=== PATIENT | female | born 1960 | race Two or more races ===

== ENCOUNTER 2016-06-23 18:58 | Emergency (ER) | payer OTHER ==
[~2016-06-23] VITALS: Ht 149.9 cm; Wt 74.8 kg
[~2016-06-23 18:58] MED LIST: LISI-275; METF-316; NOVOLOG MIX; PREDNISOLONE AC 1% EYE DROP; SIMV-13; [UNRECOGNIZED DRUG - OTHER]
[2016-06-23 20:36] LABS: Basophils # (auto) 0 uL; Basophils % (auto) 0.3 % (0.0-2.0); Eosinophils # (auto) 0.3 uL; Eosinophils % (auto) 4.3 % (0.0-7.0); Hematocrit 39.1 % (36.0-46.0); Hemoglobin 13.1 g/dL (12.2-16.2); Lymphocytes # (auto) 2.2 uL; Mean Corpuscular Hemoglobin 27.1 pg (28.0-32.0); Mean Corpuscular Hgb Conc. 33.5 g/dL (32.0-36.0); Mean Platelet Volume 11.3 fL (7.4-10.4); Monocytes # (auto) 0.3 uL; Monocytes % (auto) 3.8 % (0.0-12.0); Neutrophils # (auto) 4.8 uL; Neutrophils % (auto) 62.6 % (37.0-80.0); Platelet Count (auto) 209 10^3/uL (140-450); Red Cell Distribution Width 14.2 % (11.6-16.0); White Blood Cell 7.7 10^3/uL (4.4-10.8)
[2016-06-23 20:55] LABS: Albumin 2.5 g/dL (3.4-5.0); Alkaline Phosphatase 106 U/L (45-117); Anion Gap 11 (5-15); Aspartate Aminotransferase 16 U/L (15-37); BUN/Creatinine Ratio 25.6; Bilirubin, Total 0.4 mg/dL (0.2-1.0); Blood Urea Nitrogen 21 mg/dL (7-18); Calcium 8.7 mg/dL (8.5-10.1); Carbon Dioxide 28 mmol/L (21-32); Chloride 105 mmol/L (98-107); GFR African American 93 mL/min; GFR Non-African American 77 mL/min; Glucose 295 mg/dL (74-106); Magnesium 2.3 mg/dL (1.6-2.6); Potassium 4.1 mmol/L (3.5-5.1); Sodium 144 mmol/L (136-145); Total Protein 6.5 g/dL (6.4-8.2)
[2016-06-23] MEDS ORDERED: LABETALOL HCL 5 MG/ML 4ML SYRINGE IV ONE (22:15)
[2016-06-23] MEDS ORDERED: cloNIDine HCL 0.1 MG TAB PO ONE (22:30)
[2016-06-23] MEDS ORDERED: InsuLIN REG 1unit/0.01ml Soln (100units/ml) IV ONE (23:30)
[2016-06-24 00:14] VITALS: BP 154/71
== END 2016-06-24 00:38 | disposition home or self-care (01) ==
LOC: ER 19:02
DX: I10 Essential (primary) hypertension (principal); E46 Unspecified protein-calorie malnutrition; E11.65 Type 2 diabetes mellitus with hyperglycemia; E78.5 Hyperlipidemia, unspecified; Z86.73 Personal history of transient ischemic attack (TIA), and cerebral infarction without residual deficits; Z90.710 Acquired absence of both cervix and uterus; Z98.890 Other specified postprocedural states
CPT/HCPCS: 36415; 70450; 80053; 82962; 83735; 84484; 85025; 94761; 96374; 99285; J1815; J3490; 93005

== ENCOUNTER 2017-07-08 23:31 | Inpatient (IN) | payer MEDICAID, OTHER ==
[~2017-07-08] VITALS: Ht 152.4 cm; Wt 71.7 kg
[~2017-07-08 23:31] MED LIST changes: -METF-316; +METF-372
[2017-07-09 00:22] LABS: Basophils # (auto) 0.1 uL; Basophils % (auto) 0.8 % (0.0-2.0); Eosinophils # (auto) 0.3 uL; Eosinophils % (auto) 4.8 % (0.0-7.0); Hematocrit 32.7 % (36.0-46.0); Hemoglobin 10.9 g/dL (12.2-16.2); Lymphocytes # (auto) 1.7 uL; Lymphocytes % (auto) 24.5 % (10.0-50.0); Mean Corpuscular Hemoglobin 27.6 pg (28.0-32.0); Mean Corpuscular Hgb Conc. 33.4 g/dL (32.0-36.0); Mean Corpuscular Volume 82.6 fL (80.0-100.0); Monocytes # (auto) 0.4 uL; Monocytes % (auto) 5.5 % (0.0-12.0); Neutrophils # (auto) 4.5 uL; Neutrophils % (auto) 64.4 % (37.0-80.0); Platelet Count (auto) 163 10^3/uL (140-450); Red Blood Cells 3.96 10^6/uL (4.0-5.20); Red Cell Distribution Width 14.7 % (11.8-14.3); White Blood Cell 6.9 10^3/uL (4.4-10.8)
[2017-07-09 00:39] LABS: Alanine Aminotransferase 18 U/L (13-56); Albumin 1.7 g/dL (3.4-5.0); Anion Gap 7 (5-15); Aspartate Aminotransferase 18 U/L (15-37); BUN/Creatinine Ratio 17.3; Blood Urea Nitrogen 19 mg/dL (7-18); Calcium 7.7 mg/dL (8.5-10.1); Carbon Dioxide 25 mmol/L (21-32); Chloride 105 mmol/L (98-107); GFR African American 66 mL/min; GFR Non-African American 55 mL/min; Potassium 4.4 mmol/L (3.5-5.1); Sodium 137 mmol/L (136-145)
[2017-07-09 00:43] LABS: Alkaline Phosphatase 138 U/L (45-117); Bilirubin, Total 0.2 mg/dL (0.2-1.0); Total Protein 5.8 g/dL (6.4-8.2)
[2017-07-09 00:46] LABS: Glucose 409 mg/dL (74-106)
[2017-07-09] MEDS ORDERED: InsuLIN REG 1unit/0.01ml Soln (100units/ml) IV ONE (01:00)
[2017-07-09] MEDS ORDERED: FUROSEMIDE 40 MG/4 ML VIAL IV ONE (01:00)
[2017-07-09 01:20] LABS: INR 0.86 (0.9-1.15); Partial Thromboplastin Time 27.6 sec (22.64-33.71); Prothrombin Time 9.4 sec (9.37-12.3)
[2017-07-09] MEDS ORDERED: HYDROcodone-ACET 7.5/325MG TAB PO ONE (01:30)
[2017-07-09] MEDS: ENALAPRILAT 1.25 MG/ML-1ML VIAL IV ONE ×2 (01:36→02:30)
[2017-07-09] MEDS ORDERED: ONDANSETRON HCL 4 MG/2 ML VIAL IV PRN (03:15)
[2017-07-09] MEDS ORDERED: MORPHINE SULFATE 8mg/ml INJ SDV IV PRN (03:15)
[2017-07-09] MEDS ORDERED: cloNIDine HCL 0.1 MG TAB PO PRN (03:15)
[2017-07-09] MEDS ORDERED: ACETAMINOPHEN 325 MG TAB PO PRN (03:15)
[2017-07-09] MEDS ORDERED: NITROGLYCERIN 0.4 MG SL TAB SL PRN (03:15)
[2017-07-09] MEDS ORDERED: DEXTROSE (50%) 50ML SYRG IV PRN (03:15)
[2017-07-09] MEDS ORDERED: HYDROcodone-ACET 5/325MG TAB PO PRN (03:15)
[2017-07-09] MEDS ORDERED: TEMAZEPAM 15 MG CAP PO PRN (03:15)
[2017-07-09] MEDS: ACCU-CHEK COMFORT CURVE STRIP VI SCH ×5 (04:19→20:18)
[2017-07-09] MEDS: InsuLIN REG 1unit/0.01ml Soln (100units/ml) SC SCH ×5 (04:25→20:18)
[2017-07-09 05:31] VITALS: BP 154/89
[2017-07-09] MEDS ORDERED: LOSA100T27 PO (06:01)
[2017-07-09 09:00] VITALS: BP 161/82
[2017-07-09] MEDS ORDERED: LISINOPRIL 10 MG TAB PO SCH (10:00)
[2017-07-09] MEDS ORDERED: HCTZ 25 MG TAB PO SCH (10:00)
[2017-07-09] MEDS: ENOXAPARIN SOD 40 MG/0.4 ML SYRINGE SC SCH (10:17)
[2017-07-09] MEDS: GABAPENTIN 300 MG CAP PO SCH ×2 (10:18→21:39)
[2017-07-09] MEDS: FAMOTIDINE 20 MG TAB PO SCH ×2 (10:18→21:39)
[2017-07-09] MEDS ORDERED: amLODIPine BESYLATE 5 MG TAB PO SCH (10:45)
[2017-07-09] MEDS: METOCLOPRAMIDE HCL 10 MG/10ml ORAL soln PO SCH ×2 (11:21→17:33)
[2017-07-09] MEDS: FUROSEMIDE 20 MG/2 ML VIAL IV SCH ×2 (11:21→19:03)
[2017-07-09 11:38] LABS: Urine Bacteria NONE SEEN /hpf (None Seen); Urine Blood TRACE /uL (Negative); Urine Hyaline Cast FEW /lpf (0 - 2); Urine Specific Gravity 1.015 (1.001-1.035); Urine WBC 2 /hpf (0 - 5)
[2017-07-09 11:56] LABS: Protein, Urine 877.1 mg/dL (0.0-11.9)
[2017-07-09 12:27] LABS: Phosphorus 3.5 mg/dL (2.5-4.90); Uric Acid 5.3 mg/dL (2.6-6.0)
[2017-07-09 13:00] VITALS: BP_SYST 144; BP_SYST 159; BP_DIAS 74; BP_DIAS 85
[2017-07-09] MEDS: PRAVASTATIN SODIUM 20 MG TAB PO SCH (21:39)
[2017-07-09] MEDS: MONTELUKAST SODIUM 10 MG TAB PO SCH (21:39)
[2017-07-09] MEDS: INSULIN LANTUS (GLARGINE) 1 /0.01ml (100units/ml) SC SCH (21:41)
[2017-07-09 22:00] VITALS: BP 138/74
[2017-07-09] MEDS ORDERED: CARVEDILOL 3.125 MG TAB PO SCH (22:00)
[2017-07-09] MEDS ORDERED: PATIENTS OWN MEDICATION (simvastatin 40 MG) PO SCH (22:00)
[2017-07-10] MEDS: ACCU-CHEK COMFORT CURVE STRIP VI SCH ×6 (00:44→19:52)
[2017-07-10] MEDS: InsuLIN REG 1unit/0.01ml Soln (100units/ml) SC SCH ×6 (03:48→19:52)
[2017-07-10 05:02] VITALS: BP 126/68
[2017-07-10 05:58] LABS: Basophils # (auto) 0 uL; Basophils % (auto) 0.7 % (0.0-2.0); Eosinophils # (auto) 0.3 uL; Eosinophils % (auto) 4.7 % (0.0-7.0); Hematocrit 30.2 % (36.0-46.0); Hemoglobin 10.1 g/dL (12.2-16.2); Lymphocytes # (auto) 1.9 uL; Lymphocytes % (auto) 28.5 % (10.0-50.0); Mean Corpuscular Hemoglobin 27.4 pg (28.0-32.0); Mean Corpuscular Hgb Conc. 33.3 g/dL (32.0-36.0); Mean Corpuscular Volume 82.3 fL (80.0-100.0); Monocytes # (auto) 0.4 uL; Monocytes % (auto) 6.7 % (0.0-12.0); Neutrophils # (auto) 3.9 uL; Neutrophils % (auto) 59.4 % (37.0-80.0); Nucleated Red Blood Cells % 0.2 %; Platelet Count (auto) 159 10^3/uL (140-450); Red Blood Cells 3.67 10^6/uL (4.0-5.20); Red Cell Distribution Width 14.8 % (11.8-14.3); White Blood Cell 6.5 10^3/uL (4.4-10.8)
[2017-07-10] MEDS: METOCLOPRAMIDE HCL 10 MG/10ml ORAL soln PO SCH ×3 (06:01→17:41)
[2017-07-10] MEDS: FUROSEMIDE 20 MG/2 ML VIAL IV SCH ×2 (06:02→18:24)
[2017-07-10 06:41] LABS: Albumin 1.5 g/dL (3.4-5.0); BUN/Creatinine Ratio 19.3; Bilirubin, Total 0.2 mg/dL (0.2-1.0); Calcium 7.9 mg/dL (8.5-10.1); Potassium 3.8 mmol/L (3.5-5.1)
[2017-07-10 08:00] VITALS: BP 159/74
[2017-07-10] MEDS: GABAPENTIN 300 MG CAP PO SCH ×2 (09:38→21:31)
[2017-07-10] MEDS: ENOXAPARIN SOD 40 MG/0.4 ML SYRINGE SC SCH (09:39)
[2017-07-10] MEDS: FAMOTIDINE 20 MG TAB PO SCH ×2 (09:39→21:31)
[2017-07-10] MEDS: LISINOPRIL 20 MG TAB PO SCH (09:39)
[2017-07-10] MEDS ORDERED: CYANOCOBALAMIN (B-12) 1000 MCG/1 ML VIAL SUBCUT ONE (09:45)
[2017-07-10] MEDS ORDERED: HCTZ 25 MG TAB PO SCH (10:00)
[2017-07-10] MEDS: ASPirin 81 mg TAB PO SCH (10:17)
[2017-07-10 12:00] VITALS: BP 150/83
[2017-07-10 16:56] VITALS: BP 132/72
[2017-07-10] MEDS: ALBUMIN 25% 100 ML IV SCH (17:42)
[2017-07-10] MEDS: PRAVASTATIN SODIUM 20 MG TAB PO SCH (21:31)
[2017-07-10] MEDS: MONTELUKAST SODIUM 10 MG TAB PO SCH (21:32)
[2017-07-10 21:33] VITALS: BP 164/87
[2017-07-10] MEDS: INSULIN LANTUS (GLARGINE) 1 /0.01ml (100units/ml) SC SCH (21:38)
[2017-07-11] MEDS: InsuLIN REG 1unit/0.01ml Soln (100units/ml) SC SCH ×7 (00:35→23:50)
[2017-07-11] MEDS: ACCU-CHEK COMFORT CURVE STRIP VI SCH ×7 (00:35→23:50)
[2017-07-11 04:32] VITALS: BP 151/76
[2017-07-11 05:53] LABS: Basophils # (auto) 0 uL; Basophils % (auto) 0.8 % (0.0-2.0); Eosinophils # (auto) 0.3 uL; Eosinophils % (auto) 4.5 % (0.0-7.0); Hematocrit 30.4 % (36.0-46.0); Hemoglobin 10.2 g/dL (12.2-16.2); Lymphocytes # (auto) 1.7 uL; Lymphocytes % (auto) 29.5 % (10.0-50.0); Mean Corpuscular Hemoglobin 27.7 pg (28.0-32.0); Mean Corpuscular Hgb Conc. 33.7 g/dL (32.0-36.0); Mean Corpuscular Volume 82.1 fL (80.0-100.0); Monocytes # (auto) 0.4 uL; Monocytes % (auto) 6.9 % (0.0-12.0); Neutrophils # (auto) 3.4 uL; Neutrophils % (auto) 58.3 % (37.0-80.0); Platelet Count (auto) 166 10^3/uL (140-450); Red Cell Distribution Width 14.5 % (11.8-14.3); White Blood Cell 5.9 10^3/uL (4.4-10.8)
[2017-07-11] MEDS: ALBUMIN 25% 100 ML IV SCH ×2 (05:58→17:05)
[2017-07-11] MEDS: METOCLOPRAMIDE HCL 10 MG/10ml ORAL soln PO SCH ×3 (06:29→16:52)
[2017-07-11] MEDS: FUROSEMIDE 20 MG/2 ML VIAL IV SCH ×2 (06:29→18:02)
[2017-07-11 06:35] LABS: BUN/Creatinine Ratio 23.1; Bilirubin, Total 0.5 mg/dL (0.2-1.0); Calcium 8.1 mg/dL (8.5-10.1); Potassium 3.9 mmol/L (3.5-5.1); Total Protein 5.8 g/dL (6.4-8.2)
[2017-07-11 08:13] VITALS: BP 161/80
[2017-07-11] MEDS: ENOXAPARIN SOD 40 MG/0.4 ML SYRINGE SC SCH (09:30)
[2017-07-11] MEDS: LISINOPRIL 20 MG TAB PO SCH (09:30)
[2017-07-11] MEDS: ASPirin 81 mg TAB PO SCH (09:30)
[2017-07-11] MEDS: FAMOTIDINE 20 MG TAB PO SCH ×2 (09:33→21:33)
[2017-07-11] MEDS: GABAPENTIN 300 MG CAP PO SCH ×2 (09:34→21:34)
[2017-07-11] MEDS ORDERED: CYANOCOBALAMIN (B-12) 1000 MCG/1 ML VIAL SUBCUT ONE (10:00)
[2017-07-11 11:41] VITALS: BP 132/80
[2017-07-11 16:46] VITALS: BP 160/73
[2017-07-11] MEDS: MONTELUKAST SODIUM 10 MG TAB PO SCH (21:33)
[2017-07-11] MEDS: PRAVASTATIN SODIUM 20 MG TAB PO SCH (21:34)
[2017-07-11] MEDS: INSULIN LANTUS (GLARGINE) 1 /0.01ml (100units/ml) SC SCH (21:41)
[2017-07-11 22:00] VITALS: BP 159/72
[2017-07-12 03:32] VITALS: BP 145/72
[2017-07-12] MEDS: ACCU-CHEK COMFORT CURVE STRIP VI SCH ×2 (04:40→07:31)
[2017-07-12] MEDS: InsuLIN REG 1unit/0.01ml Soln (100units/ml) SC SCH ×3 (04:40→07:31)
[2017-07-12] MEDS: ALBUMIN 25% 100 ML IV SCH (05:38)
[2017-07-12 06:09] LABS: Albumin 2.6 g/dL (3.4-5.0); Calcium 8.4 mg/dL (8.5-10.1)
[2017-07-12 06:11] LABS: Basophils # (auto) 0 uL; Basophils % (auto) 0.6 % (0.0-2.0); Eosinophils # (auto) 0.3 uL; Eosinophils % (auto) 4.5 % (0.0-7.0); Hematocrit 30.8 % (36.0-46.0); Hemoglobin 10.6 g/dL (12.2-16.2); Lymphocytes # (auto) 1.7 uL; Lymphocytes % (auto) 25.1 % (10.0-50.0); Mean Corpuscular Hemoglobin 28.3 pg (28.0-32.0); Mean Corpuscular Hgb Conc. 34.6 g/dL (32.0-36.0); Mean Corpuscular Volume 81.8 fL (80.0-100.0); Monocytes # (auto) 0.5 uL; Monocytes % (auto) 7.1 % (0.0-12.0); Neutrophils # (auto) 4.1 uL; Neutrophils % (auto) 62.7 % (37.0-80.0); Nucleated Red Blood Cells % 0.1 %; Platelet Count (auto) 165 10^3/uL (140-450); Red Blood Cells 3.76 10^6/uL (4.0-5.20); Red Cell Distribution Width 14.5 % (11.8-14.3); White Blood Cell 6.6 10^3/uL (4.4-10.8)
[2017-07-12 06:12] LABS: BUN/Creatinine Ratio 26.3
[2017-07-12 06:15] LABS: Bilirubin, Total 0.5 mg/dL (0.2-1.0); Total Protein 6.5 g/dL (6.4-8.2)
[2017-07-12] MEDS: METOCLOPRAMIDE HCL 10 MG/10ml ORAL soln PO SCH (06:17)
[2017-07-12] MEDS: FUROSEMIDE 20 MG/2 ML VIAL IV SCH (06:48)
[2017-07-12 09:00] VITALS: BP 155/70
[2017-07-12] MEDS: ENOXAPARIN SOD 40 MG/0.4 ML SYRINGE SC SCH (09:27)
[2017-07-12] MEDS: GABAPENTIN 300 MG CAP PO SCH (09:27)
[2017-07-12] MEDS: ASPirin 81 mg TAB PO SCH (09:28)
[2017-07-12] MEDS: FAMOTIDINE 20 MG TAB PO SCH (09:28)
[2017-07-12] MEDS ORDERED: LISINOPRIL 20 MG TAB PO SCH (10:00)
[2017-07-12] MEDS ORDERED: FUROSEMIDE 40 MG TAB PO SCH (18:00)
== END 2017-07-12 10:39 | disposition home or self-care (01) | DRG 420 ==
LOC: ER 23:42 → TELE 23:43 → TELE-WESTW 07-09 04:54
PROVIDERS: ADMIT Nurse Practitioner; ATTEND Internal Medicine
DX: E11.65 Type 2 diabetes mellitus with hyperglycemia (principal); N17.0 Acute kidney failure with tubular necrosis; E43 Unspecified severe protein-calorie malnutrition; I13.0 Hypertensive heart and chronic kidney disease with heart failure and stage 1 through stage 4 chronic kidney disease, or unspecified chronic kidney disease; E11.21 Type 2 diabetes mellitus with diabetic nephropathy; N18.3 Chronic kidney disease, stage 3 (moderate); E11.22 Type 2 diabetes mellitus with diabetic chronic kidney disease; E78.5 Hyperlipidemia, unspecified; I25.10 Atherosclerotic heart disease of native coronary artery without angina pectoris; E11.40 Type 2 diabetes mellitus with diabetic neuropathy, unspecified; I65.21 Occlusion and stenosis of right carotid artery; G47.00 Insomnia, unspecified; E03.9 Hypothyroidism, unspecified; I50.30 Unspecified diastolic (congestive) heart failure; E53.8 Deficiency of other specified B group vitamins; F41.9 Anxiety disorder, unspecified; E66.01 Morbid (severe) obesity due to excess calories; I69.354 Hemiplegia and hemiparesis following cerebral infarction affecting left non-dominant side; Z79.4 Long term (current) use of insulin; Z80.0 Family history of malignant neoplasm of digestive organs; Z80.8 Family history of malignant neoplasm of other organs or systems; Z82.49 Family history of ischemic heart disease and other diseases of the circulatory system; Z83.3 Family history of diabetes mellitus; Z90.710 Acquired absence of both cervix and uterus; Z68.30 Body mass index [BMI] 30.0-30.9, adult; Z79.899 Other long term (current) drug therapy
CPT/HCPCS: 36415; 70450; 71045; 76775; 80053; 81001; 82306; 82570; 82607; 82962; 83036; 83880; 83970; 84100; 84156; 84166; 84300; 84443; 84484; 84550; 85025; 85379; 85610; 85730; 93005; 93306; 93970; 94761; 96374; 96375; J1815; P9047

== ENCOUNTER 2017-11-05 01:00 | Emergency (ER) | payer MEDICAID ==
[~2017-11-05] VITALS: Ht 149.9 cm; Wt 72.6 kg
[~2017-11-05 01:00] MED LIST changes: -LISI-275; -METF-372
[2017-11-05 01:49] LABS: Eosinophils # (auto) 0.3 uL; Hemoglobin 11.7 g/dL (12.2-16.2); Lymphocytes % (auto) 23.1 % (10.0-50.0); Monocytes # (auto) 0.4 uL
[2017-11-05 01:51] LABS: Basophils # (auto) 0 uL; Basophils % (auto) 0.7 % (0.0-2.0); Eosinophils % (auto) 4.7 % (0.0-7.0); Hematocrit 35.6 % (36.0-46.0); Lymphocytes # (auto) 1.5 uL; Mean Corpuscular Hemoglobin 26.4 pg (28.0-32.0); Mean Corpuscular Hgb Conc. 32.8 g/dL (32.0-36.0); Mean Corpuscular Volume 80.3 fL (80.0-100.0); Monocytes % (auto) 5.3 % (0.0-12.0); Neutrophils # (auto) 4.4 uL; Neutrophils % (auto) 66.2 % (37.0-80.0); Nucleated Red Blood Cells % 0.1 %; Platelet Count (auto) 169 10^3/uL (140-450); Red Blood Cells 4.43 10^6/uL (4.0-5.20); Red Cell Distribution Width 15.2 % (11.8-14.3); White Blood Cell 6.6 10^3/uL (4.4-10.8)
[2017-11-05 02:05] LABS: Alanine Aminotransferase 18 U/L (13-56); Anion Gap 8 (5-15); Aspartate Aminotransferase 13 U/L (15-37); BUN/Creatinine Ratio 20.6; Blood Urea Nitrogen 27 mg/dL (7-18); Carbon Dioxide 26 mmol/L (21-32); Chloride 108 mmol/L (98-107); GFR African American 54 mL/min; GFR Non-African American 45 mL/min; Glucose 225 mg/dL (74-106); Potassium 4.1 mmol/L (3.5-5.1); Sodium 142 mmol/L (136-145)
[2017-11-05 02:10] LABS: Alkaline Phosphatase 129 U/L (45-117); Bilirubin, Total 0.3 mg/dL (0.2-1.0); Total Protein 6.1 g/dL (6.4-8.2)
[2017-11-05] MEDS ORDERED: SODIUM CHLORIDE 0.9% 1,000 ML IV ONE (06:59)
[2017-11-05] MEDS ORDERED: InsuLIN REG 1unit/0.01ml Soln (100units/ml) IV ONE (07:00)
[2017-11-05] MEDS ORDERED: cloNIDine HCL 0.1 MG TAB PO ONE (11:15)
[2017-11-05 12:27] VITALS: BP 173/79
== END 2017-11-05 12:53 | disposition home or self-care (01) ==
LOC: EDBD 01:00 → ER 01:07
DX: E11.65 Type 2 diabetes mellitus with hyperglycemia (principal); I10 Essential (primary) hypertension; E43 Unspecified severe protein-calorie malnutrition; I25.10 Atherosclerotic heart disease of native coronary artery without angina pectoris; E78.5 Hyperlipidemia, unspecified; F41.9 Anxiety disorder, unspecified; Z90.710 Acquired absence of both cervix and uterus; Z86.73 Personal history of transient ischemic attack (TIA), and cerebral infarction without residual deficits; Z79.4 Long term (current) use of insulin; Z68.32 Body mass index [BMI] 32.0-32.9, adult
CPT/HCPCS: 36415; 71045; 80053; 82962; 84484; 85025; 93005; 96361; 96374; 99285; J1815; J7030

== ENCOUNTER 2017-12-16 01:23 | Emergency (ER) | payer MEDICAID ==
[~2017-12-16] VITALS: Ht 144.8 cm; Wt 72.6 kg
[2017-12-16] MEDS ORDERED: cloNIDine HCL 0.1 MG TAB PO ONE (01:45)
[2017-12-16] MEDS ORDERED: ACETAMINOPHEN 325 MG TAB PO ONE (02:00)
[2017-12-16 02:33] LABS: Basophils # (auto) 0.1 uL; Basophils % (auto) 0.8 % (0.0-2.0); Hemoglobin 11.4 g/dL (12.2-16.2); Monocytes # (auto) 0.4 uL
[2017-12-16 02:35] LABS: Eosinophils # (auto) 0.4 uL; Eosinophils % (auto) 4.5 % (0.0-7.0); Hematocrit 34.6 % (36.0-46.0); Lymphocytes % (auto) 22.7 % (10.0-50.0); Mean Corpuscular Hemoglobin 26.7 pg (28.0-32.0); Mean Corpuscular Hgb Conc. 33.1 g/dL (32.0-36.0); Mean Corpuscular Volume 80.7 fL (80.0-100.0); Monocytes % (auto) 4.9 % (0.0-12.0); Neutrophils % (auto) 67.1 % (37.0-80.0); Platelet Count (auto) 178 10^3/uL (140-450); Red Blood Cells 4.28 10^6/uL (4.0-5.20); Red Cell Distribution Width 15.1 % (11.8-14.3)
[2017-12-16 02:51] LABS: Albumin 2.2 g/dL (3.4-5.0); BUN/Creatinine Ratio 19.4; Potassium 4.4 mmol/L (3.5-5.1)
[2017-12-16 02:53] LABS: Bilirubin, Total 0.3 mg/dL (0.2-1.0); Total Protein 6.5 g/dL (6.4-8.2)
[2017-12-16 04:44] LABS: Urine Bacteria NONE SEEN /hpf (None Seen); Urine Blood Negative /uL (Negative); Urine Hyaline Cast FEW /lpf (0 - 2); Urine Mucus FEW (None Seen); Urine WBC 2 /hpf (0 - 5)
[2017-12-16 05:00] VITALS: BP 112/61
== END 2017-12-16 05:12 | disposition home or self-care (01) ==
LOC: ER 01:24
DX: I10 Essential (primary) hypertension (principal); E11.65 Type 2 diabetes mellitus with hyperglycemia; I25.10 Atherosclerotic heart disease of native coronary artery without angina pectoris; E78.5 Hyperlipidemia, unspecified; Z79.4 Long term (current) use of insulin; Z79.899 Other long term (current) drug therapy; Z86.73 Personal history of transient ischemic attack (TIA), and cerebral infarction without residual deficits; Z90.710 Acquired absence of both cervix and uterus
CPT/HCPCS: 36415; 80053; 81001; 82962; 85025; 93005

== ENCOUNTER 2018-04-30 10:58 | Inpatient (IN) | payer MEDICAID ==
[~2018-04-30] VITALS: Ht 152.4 cm; Wt 77.0 kg
[~2018-04-30 10:58] MED LIST changes: +ASPI-498 PO; +ATOR40TA52 PO; +CARV3.1240 PO; +CLON0.1T PO; +FERR-20 PO; +FURO40TA4 PO; +GABA100C9 PO; +LISI30TA36 PO; +METF-370 PO
[2018-04-30 12:21] LABS: Basophils # (auto) 0 uL; Eosinophils # (auto) 0.2 uL; Eosinophils % (auto) 5.1 % (0.0-7.0); Hemoglobin 8.3 g/dL (12.2-16.2); Neutrophils # (auto) 1.8 uL; White Blood Cell 3.2 10^3/uL (4.4-10.8)
[2018-04-30 12:24] LABS: Basophils % (auto) 0.8 % (0.0-2.0); Hematocrit 25.6 % (36.0-46.0); Lymphocytes # (auto) 0.7 uL; Lymphocytes % (auto) 23.2 % (10.0-50.0); Mean Corpuscular Hemoglobin 26.6 pg (28.0-32.0); Mean Corpuscular Hgb Conc. 32.6 g/dL (32.0-36.0); Mean Corpuscular Volume 81.5 fL (80.0-100.0); Monocytes # (auto) 0.5 uL; Monocytes % (auto) 14.5 % (0.0-12.0); Neutrophils % (auto) 56.4 % (37.0-80.0); Nucleated Red Blood Cells % 0.1 %; Platelet Count (auto) 117 10^3/uL (140-450); Red Blood Cells 3.14 10^6/uL (4.0-5.20); Red Cell Distribution Width 15.3 % (11.8-14.3)
[2018-04-30 12:40] LABS: Albumin 1.5 g/dL (3.4-5.0); Calcium 7.1 mg/dL (8.5-10.1); Magnesium 2.2 mg/dL (1.6-2.6); Potassium 3.6 mmol/L (3.5-5.1)
[2018-04-30 12:47] LABS: Bilirubin, Total 0.2 mg/dL (0.2-1.0); Total Protein 5.2 g/dL (6.4-8.2)
[2018-04-30 19:12] LABS: INR 0.9 (0.9-1.15); Partial Thromboplastin Time 30.4 sec (23.78-33.04); Prothrombin Time 9.7 sec (9.27-12.13)
[2018-04-30] MEDS ORDERED: cloNIDine HCL 0.1 MG TAB ONE (19:41)
[2018-04-30] MEDS ORDERED: cloNIDine HCL 0.1 MG TAB PO ONE (19:45)
[2018-04-30] MEDS ORDERED: DEXTROSE (50%) 50ML SYRG IV PRN (20:30)
[2018-04-30] MEDS ORDERED: MORPHINE SULFATE 4 MG/ML SYR/VIAL IV PRN (20:30)
[2018-04-30] MEDS ORDERED: NITROGLYCERIN 0.4 MG SL TAB SL PRN (20:30)
[2018-04-30] MEDS ORDERED: LABETALOL HCL 5 MG/ML ML 20ML VIAL IV PRN (20:30)
[2018-04-30] MEDS ORDERED: CYANOCOBALAMIN 500 MCG TAB PO ONE (20:30)
[2018-04-30] MEDS ORDERED: GABAPENTIN 300 MG CAP PO SCH (22:00)
[2018-04-30] MEDS: ATORVASTATIN 20 MG TAB PO SCH (23:21)
[2018-04-30] MEDS: CARVEDILOL 3.125 MG TAB PO SCH (23:21)
[2018-04-30] MEDS: InsuLIN REG 1unit/0.01ml Soln (100units/ml) SC SCH (23:22)
[2018-04-30] MEDS: ACCU-CHEK COMFORT CURVE STRIP VI SCH (23:22)
[2018-05-01 06:34] LABS: Basophils # (auto) 0 uL; Eosinophils # (auto) 0.2 uL; Lymphocytes # (auto) 0.8 uL; Monocytes # (auto) 0.3 uL; Nucleated Red Blood Cells % 0.2 %; White Blood Cell 2.9 10^3/uL (4.4-10.8)
[2018-05-01 06:38] LABS: Basophils % (auto) 0.9 % (0.0-2.0); Eosinophils % (auto) 6.8 % (0.0-7.0); Hematocrit 25.5 % (36.0-46.0); Hemoglobin 8.3 g/dL (12.2-16.2); Lymphocytes % (auto) 27.6 % (10.0-50.0); Mean Corpuscular Hemoglobin 26.6 pg (28.0-32.0); Mean Corpuscular Hgb Conc. 32.6 g/dL (32.0-36.0); Mean Corpuscular Volume 81.4 fL (80.0-100.0); Neutrophils # (auto) 1.6 uL; Neutrophils % (auto) 53.7 % (37.0-80.0); Platelet Count (auto) 108 10^3/uL (140-450); Red Blood Cells 3.14 10^6/uL (4.0-5.20)
[2018-05-01 07:28] LABS: BUN/Creatinine Ratio 18.8; Calcium 7.4 mg/dL (8.5-10.1); Potassium 3.4 mmol/L (3.5-5.1)
[2018-05-01] MEDS: ACCU-CHEK COMFORT CURVE STRIP VI SCH ×4 (07:49→22:00)
[2018-05-01] MEDS: FERROUS SULFATE 325 MG TAB PO SCH ×2 (08:52→18:55)
[2018-05-01] MEDS: InsuLIN REG 1unit/0.01ml Soln (100units/ml) SC SCH ×4 (08:52→21:51)
[2018-05-01] MEDS ORDERED: FUROSEMIDE 40 MG/4 ML VIAL IV SCH (10:00)
[2018-05-01] MEDS ORDERED: FUROSEMIDE 40 MG TAB PO SCH (10:00)
[2018-05-01] MEDS: ASPirin 81 mg TAB PO SCH (10:25)
[2018-05-01] MEDS: CARVEDILOL 3.125 MG TAB PO SCH ×2 (10:25→21:24)
[2018-05-01] MEDS: PANTOPRAZOLE 40 MG TAB PO SCH (10:25)
[2018-05-01] MEDS: METOLAZONE 5 MG TAB PO SCH (10:25)
[2018-05-01] MEDS: cloNIDine HCL 0.1 MG TAB PO SCH ×2 (10:25→21:23)
[2018-05-01] MEDS: CYANOCOBALAMIN 500 MCG TAB PO SCH (10:25)
[2018-05-01] MEDS: GABAPENTIN 300 MG CAP PO SCH ×2 (10:25→21:22)
[2018-05-01 11:00] VITALS: BP 141/58
--- NOTE | 2018-05-01 11:00 | NUR ---
Telemetry admit from [facility] admitted to Telemetry unit. Patient oriented to Modesto Reese, primary RN, unit, room, bed, and unit policies regarding patient care and visiting hours. Patient now on continuous telemetry monitoring, tele box # 18 and telemetry reading on arrival to unit is [id number]. Patient placed on bedside oxygen, weighed by bed scale and encouraged to call if they need something. All questions and concerns addressed, patient verbalized understanding.
[2018-05-01 13:00] VITALS: BP 141/58
[2018-05-01 17:00] VITALS: BP 130/65
--- NOTE | 2018-05-01 18:15 | NUR ---
MD rounds Dr. Nguyen at bedside. New orders received.
[2018-05-01] MEDS: DOXYCYCLINE 100MG/250ML 250 ML IV SCH (18:55)
--- NOTE | 2018-05-01 19:40 | NUR ---
Opening Shift Note Assumed care of patient, awake and alert, ambulatory. Noted SOB, pt is on oxygen 2L NC. Complains of back pain when coughing. Advised to change to a comfortable sitting position to improve breathing. Instructed to call for assist PRN, pt verbalized understanding. Call light within reach, bed in lowest position for safety. will continue to monitor for changes Q1hr and PRN. Signed: 05/02/18 at 0032 by EJ LUO SN <Co-Signature Required> Co-Signed: 05/02/18 at 0032 by Barbra Jameson RN RN
[2018-05-01 20:00] VITALS: BP 146/69
[2018-05-01] MEDS: ATORVASTATIN 20 MG TAB PO SCH (21:22)
[2018-05-01 22:00] VITALS: BP 146/69
--- NOTE | 2018-05-02 03:00 | NUR ---
Did pt rounds, pt was sleeping and showed no signs of distress or trouble breathing. Will continue to monitor. Signed: 05/02/18 at 327 by EJ LUO SN <Co-Signature Required> Co-Signed: 05/02/18 at 327 by Barbra Jameson RN RN
[2018-05-02 05:00] VITALS: BP 128/55
[2018-05-02] MEDS: DOXYCYCLINE 100MG/250ML 250 ML IV SCH ×2 (06:16→17:46)
[2018-05-02] MEDS: ACCU-CHEK COMFORT CURVE STRIP VI SCH ×4 (06:17→22:45)
[2018-05-02 06:20] LABS: Basophils # (auto) 0 uL; Eosinophils # (auto) 0.3 uL; Hemoglobin 8.4 g/dL (12.2-16.2); Monocytes # (auto) 0.3 uL; White Blood Cell 4.3 10^3/uL (4.4-10.8)
[2018-05-02 06:22] LABS: Basophils % (auto) 0.5 % (0.0-2.0); Eosinophils % (auto) 6.8 % (0.0-7.0); Hematocrit 25.3 % (36.0-46.0); Lymphocytes # (auto) 0.8 uL; Lymphocytes % (auto) 19.1 % (10.0-50.0); Mean Corpuscular Hemoglobin 26.8 pg (28.0-32.0); Mean Corpuscular Volume 81.3 fL (80.0-100.0); Monocytes % (auto) 7.2 % (0.0-12.0); Neutrophils # (auto) 2.9 uL; Neutrophils % (auto) 66.4 % (37.0-80.0); Nucleated Red Blood Cells % 0.1 %; Platelet Count (auto) 124 10^3/uL (140-450); Red Blood Cells 3.12 10^6/uL (4.0-5.20); Red Cell Distribution Width 14.8 % (11.8-14.3)
[2018-05-02] MEDS: InsuLIN REG 1unit/0.01ml Soln (100units/ml) SC SCH ×4 (06:33→22:44)
[2018-05-02 06:43] LABS: BUN/Creatinine Ratio 23.8; Calcium 7.3 mg/dL (8.5-10.1); Magnesium 2.1 mg/dL (1.6-2.6); Potassium 3.6 mmol/L (3.5-5.1)
--- NOTE | 2018-05-02 07:30 | NUR ---
Cardiology Consult Dr. Carter at bedside, new orders received. For Cardiolite Multiple today. Placed on NPO temporarily. Instructed patient not to eat or drink anything until the test is done. Patient understood.
[2018-05-02] MEDS: FERROUS SULFATE 325 MG TAB PO SCH ×2 (08:00→18:20)
--- NOTE | 2018-05-02 08:00 | NUR ---
Opening Shift Note Assumed care of patient, awake and alert. No S/S of distress/SOB or pain. Instructed on POC and to call for assist PRN, will continue to monitor for changes Q1hr and PRN.
[2018-05-02] MEDS ORDERED: ADENOSINE 62 MG in GIVE UN-DILUTED 0 ML IV STA (08:23)
--- NOTE | 2018-05-02 08:50 | NUR ---
Nephrology Consult Dr. Williamson at bedside. Patient is advised.
--- NOTE | 2018-05-02 08:55 | NUR ---
IV insertion Another IV access obtained, via clean sterile technique by inserting 22 gauge catheter at right forearm after one attempt. IV secured properly. No trauma to site. Patient tolerated well.
[2018-05-02 09:00] VITALS: BP 165/85
--- NOTE | 2018-05-02 09:00 | NUR ---
Patient taken to Nuclear Medicine for Stress Test via wheelchair. Will continue care.
[2018-05-02] MEDS: CARVEDILOL 3.125 MG TAB PO SCH ×3 (10:00→22:40)
[2018-05-02] MEDS: CYANOCOBALAMIN 500 MCG TAB PO SCH (10:00)
[2018-05-02] MEDS: GABAPENTIN 300 MG CAP PO SCH ×2 (10:00→22:42)
[2018-05-02] MEDS: cloNIDine HCL 0.1 MG TAB PO SCH ×3 (10:00→22:41)
[2018-05-02 10:15] VITALS: BP 168/64
--- NOTE | 2018-05-02 12:20 | NUR ---
Patient back to her room S/P Stress test via wheelchair.
[2018-05-02 13:00] VITALS: BP 165/69
[2018-05-02] MEDS: FUROSEMIDE 40 MG/4 ML VIAL IV SCH (15:47)
[2018-05-02] MEDS: PANTOPRAZOLE 40 MG TAB PO SCH (15:49)
[2018-05-02] MEDS: METOLAZONE 5 MG TAB PO SCH (15:49)
[2018-05-02] MEDS: ASPirin 81 mg TAB PO SCH (15:49)
[2018-05-02 17:00] VITALS: BP 202/86
--- NOTE | 2018-05-02 17:40 | NUR ---
BP-210/93. LABETALOL IV PRN NOT AVAILABLE. ADMINISTERED THE AM CARVEDILOL PO AND CATAPRES PO THAT WAS HELD BECAUSE PATIENT WAS ON STRESS TEST. WILL CONTINUE CARE.
[2018-05-02 17:52] LABS: Protein, Urine 165.3 mg/dL (0.0-11.9)
[2018-05-02 18:08] LABS: Urine Bacteria NONE SEEN /hpf (None Seen); Urine Blood Negative /uL (Negative); Urine Specific Gravity 1.006 (1.001-1.035); Urine WBC 1 /hpf (0 - 5)
--- NOTE | 2018-05-02 20:00 | NUR ---
Opening shift report Patient resting in bed with eyes closed. Showing no signs of distress will continue to monitor every hour and as when needed. Made sure call light is within reach and set bed alarm for safety.
[2018-05-02 22:00] VITALS: BP 174/71
[2018-05-02] MEDS: ATORVASTATIN 20 MG TAB PO SCH (22:38)
[2018-05-02] MEDS: ENALAPRIL MALEATE 2.5 MG TAB PO SCH (22:39)
[2018-05-03 05:00] VITALS: BP 118/57
[2018-05-03] MEDS: FUROSEMIDE 40 MG/4 ML VIAL IV SCH ×2 (06:12→17:59)
[2018-05-03] MEDS: ACCU-CHEK COMFORT CURVE STRIP VI SCH ×4 (06:15→22:17)
[2018-05-03] MEDS: DOXYCYCLINE 100MG/250ML 250 ML IV SCH ×2 (06:15→17:59)
[2018-05-03] MEDS: InsuLIN REG 1unit/0.01ml Soln (100units/ml) SC SCH ×4 (06:15→22:18)
[2018-05-03 07:35] LABS: Basophils # (auto) 0 uL; Eosinophils # (auto) 0.3 uL; Lymphocytes # (auto) 1.3 uL; Mean Corpuscular Volume 79.8 fL (80.0-100.0)
[2018-05-03 07:38] LABS: Basophils % (auto) 0.5 % (0.0-2.0); Eosinophils % (auto) 5.6 % (0.0-7.0); Hematocrit 24.9 % (36.0-46.0); Hemoglobin 8.3 g/dL (12.2-16.2); Lymphocytes % (auto) 21.1 % (10.0-50.0); Mean Corpuscular Hemoglobin 26.5 pg (28.0-32.0); Mean Corpuscular Hgb Conc. 33.3 g/dL (32.0-36.0); Monocytes # (auto) 0.5 uL; Neutrophils # (auto) 3.9 uL; Neutrophils % (auto) 64.8 % (37.0-80.0); Platelet Count (auto) 135 10^3/uL (140-450); Red Blood Cells 3.11 10^6/uL (4.0-5.20); Red Cell Distribution Width 14.9 % (11.8-14.3)
[2018-05-03 07:57] LABS: BUN/Creatinine Ratio 24.1; Calcium 7.4 mg/dL (8.5-10.1); Potassium 3.5 mmol/L (3.5-5.1)
[2018-05-03] MEDS: GABAPENTIN 300 MG CAP PO SCH (08:57)
[2018-05-03] MEDS: ASPirin 81 mg TAB PO SCH (08:57)
[2018-05-03] MEDS: PANTOPRAZOLE 40 MG TAB PO SCH (08:57)
[2018-05-03] MEDS: FERROUS SULFATE 325 MG TAB PO SCH ×2 (08:57→17:59)
[2018-05-03] MEDS: METOLAZONE 5 MG TAB PO SCH (08:58)
[2018-05-03] MEDS: CARVEDILOL 3.125 MG TAB PO SCH ×2 (08:58→22:10)
[2018-05-03] MEDS: cloNIDine HCL 0.1 MG TAB PO SCH ×2 (08:59→22:09)
[2018-05-03 09:00] VITALS: BP 142/71
--- NOTE | 2018-05-03 09:00 | NUR ---
Negative Stress test result per Dr. Carter.
--- NOTE | 2018-05-03 10:00 | NUR ---
Noted to have generalized edema with 2+ pitting edema on bilateral lower extremities. Will continue care.
[2018-05-03] MEDS: CYANOCOBALAMIN 500 MCG TAB PO SCH (10:20)
[2018-05-03] MEDS: ENALAPRIL MALEATE 2.5 MG TAB PO SCH ×2 (10:21→22:11)
[2018-05-03] MEDS ORDERED: GABAPENTIN 300 MG CAP PO ONE (12:45)
[2018-05-03 13:00] VITALS: BP 148/76
--- NOTE | 2018-05-03 16:45 | NUR ---
MD rounds Dr. Nguyen at bedside. New orders received.
[2018-05-03 17:00] VITALS: BP 135/70
[2018-05-03] MEDS ORDERED: ALBUTEROL SULF 2.5 MG/0.5ML(0.5%) NEB SOLN NEB SCH (18:00)
[2018-05-03] MEDS: ALBUTEROL SULF 2.5 MG/0.5ML(0.5%) NEB SOLN NEB SCH ×2 (18:30→22:22)
--- NOTE | 2018-05-03 18:56 | NUR ---
PT REFUSED MED NEB TX AT THIS TIME. PT DENIES ANY RESPIRATORY DISTRESS. WILL CONTINUE WITH NEXT SCHEDULED TX.
--- NOTE | 2018-05-03 19:00 | NUR ---
OPENING NOTE PATIENT IS A&OX4. SITTING UP IN BED NO S/S OF DISTRESS. BED IS AT LOWEST POSITION, CALL LIGHT IS IN REACH.
[2018-05-03 19:03] VITALS: BP 135/70
[2018-05-03 22:00] VITALS: BP 136/78
[2018-05-03] MEDS: ATORVASTATIN 20 MG TAB PO SCH (22:10)
[2018-05-03] MEDS: BUDESONIDE (INHALATION) 0.5 MG/2 ML NEB NEB SCH (22:22)
[2018-05-04] MEDS: ALBUTEROL SULF 2.5 MG/0.5ML(0.5%) NEB SOLN NEB SCH ×6 (02:20→22:25)
[2018-05-04 04:53] VITALS: BP 111/57
[2018-05-04] MEDS: DOXYCYCLINE 100MG/250ML 250 ML IV SCH ×2 (05:47→18:02)
[2018-05-04] MEDS: FUROSEMIDE 40 MG/4 ML VIAL IV SCH ×2 (05:47→18:01)
[2018-05-04] MEDS: BUDESONIDE (INHALATION) 0.5 MG/2 ML NEB NEB SCH ×2 (06:07→19:08)
[2018-05-04] MEDS: ACCU-CHEK COMFORT CURVE STRIP VI SCH ×4 (06:14→21:34)
[2018-05-04] MEDS: InsuLIN REG 1unit/0.01ml Soln (100units/ml) SC SCH ×4 (06:17→21:35)
[2018-05-04 06:30] LABS: Basophils # (auto) 0 uL; Eosinophils # (auto) 0.3 uL; Lymphocytes # (auto) 1.6 uL; Monocytes # (auto) 0.5 uL; Neutrophils % (auto) 64.8 % (37.0-80.0)
[2018-05-04 06:33] LABS: Basophils % (auto) 0.2 % (0.0-2.0); Hematocrit 25.3 % (36.0-46.0); Hemoglobin 8.4 g/dL (12.2-16.2); Lymphocytes % (auto) 23.8 % (10.0-50.0); Mean Corpuscular Hemoglobin 26.6 pg (28.0-32.0); Mean Corpuscular Hgb Conc. 33.3 g/dL (32.0-36.0); Mean Corpuscular Volume 79.8 fL (80.0-100.0); Monocytes % (auto) 7.2 % (0.0-12.0); Neutrophils # (auto) 4.3 uL; Nucleated Red Blood Cells % 0.1 %; Platelet Count (auto) 138 10^3/uL (140-450); Red Blood Cells 3.17 10^6/uL (4.0-5.20); Red Cell Distribution Width 14.8 % (11.8-14.3); White Blood Cell 6.7 10^3/uL (4.4-10.8)
[2018-05-04 06:53] LABS: Potassium 3.5 mmol/L (3.5-5.1)
[2018-05-04 06:57] LABS: BUN/Creatinine Ratio 25.9; Calcium 7.6 mg/dL (8.5-10.1); Magnesium 2.1 mg/dL (1.6-2.6)
[2018-05-04 09:00] VITALS: BP 136/61
[2018-05-04] MEDS: ASPirin 81 mg TAB PO SCH (09:18)
[2018-05-04] MEDS: PANTOPRAZOLE 40 MG TAB PO SCH (09:19)
[2018-05-04] MEDS: cloNIDine HCL 0.1 MG TAB PO SCH ×2 (09:21→21:27)
[2018-05-04] MEDS: FERROUS SULFATE 325 MG TAB PO SCH ×2 (09:22→18:02)
[2018-05-04] MEDS: METOLAZONE 5 MG TAB PO SCH (09:22)
[2018-05-04] MEDS: GABAPENTIN 300 MG CAP PO SCH (09:38)
[2018-05-04] MEDS: CYANOCOBALAMIN 500 MCG TAB PO SCH (09:38)
[2018-05-04] MEDS: ENALAPRIL MALEATE 2.5 MG TAB PO SCH ×2 (09:39→21:28)
[2018-05-04] MEDS: CARVEDILOL 3.125 MG TAB PO SCH ×2 (09:39→21:29)
--- NOTE | 2018-05-04 10:20 | NUR ---
PT at beside.
[2018-05-04] MEDS: guaiFENesin 200 MG/10 ML UD PO PRN ×3 (11:50→20:28)
--- NOTE | 2018-05-04 11:50 | NUR ---
Noted to have moist non-productive cough. Medicated with Guafenesin cough syrup as ordered.
--- NOTE | 2018-05-04 12:42 | NUR ---
Nutrition Assessment Notes please see attached link for complete assessment Est. Needs based on IBW (45 kg): 8145-3778 kcal (25-30 kcal/kgBW), 36-45 gms pro (0.8-1.0 gms/kgBW d/t elev RFT CKD). Will continue to monitor pertinent labs and reassess nutrient needs prn. Will Reassess per dry body wt Addendum: 05/04/18 at [address] Amended: Links added.
[2018-05-04 13:00] VITALS: BP 127/67
[2018-05-04 17:00] VITALS: BP 126/69
--- NOTE | 2018-05-04 19:00 | NUR ---
OPENING NOTE PATIENT IS SITTING UP IN BED. A&OX4. NO S/S OF DISTRESS. CALL LIGHT IS IN REACH, DAUGHTER IS AT BEDSIDE.
[2018-05-04] MEDS: ATORVASTATIN 20 MG TAB PO SCH (21:27)
[2018-05-04 22:00] VITALS: BP 152/73
[2018-05-05] MEDS: ALBUTEROL SULF 2.5 MG/0.5ML(0.5%) NEB SOLN NEB SCH ×4 (02:09→13:55)
[2018-05-05 05:00] VITALS: BP 129/58
[2018-05-05] MEDS: FUROSEMIDE 40 MG/4 ML VIAL IV SCH (06:07)
[2018-05-05] MEDS: DOXYCYCLINE 100MG/250ML 250 ML IV SCH (06:08)
[2018-05-05] MEDS: guaiFENesin 200 MG/10 ML UD PO PRN (06:18)
[2018-05-05] MEDS: InsuLIN REG 1unit/0.01ml Soln (100units/ml) SC SCH ×2 (06:26→12:17)
[2018-05-05] MEDS: ACCU-CHEK COMFORT CURVE STRIP VI SCH ×2 (06:26→12:18)
[2018-05-05] MEDS: BUDESONIDE (INHALATION) 0.5 MG/2 ML NEB NEB SCH (06:31)
[2018-05-05 06:50] LABS: Calcium 8.1 mg/dL (8.5-10.1); Potassium 3.5 mmol/L (3.5-5.1)
[2018-05-05 06:53] LABS: BUN/Creatinine Ratio 27.3
--- NOTE | 2018-05-05 07:40 | NUR ---
OPENING SHIFT NOTE ASSUMED CARE OF PATIENT. PATIENT RESTING COMFORTABLY IN BED WITH EYES CLOSED. NO S/S OF DISTRESS OR SOB NOTED. BED IN LOWEST LOCKED POSITION, CALL LIGHT WITHIN REACH. WILL CONTINUE TO MONITOR.
[2018-05-05 07:56] VITALS: BP 138/67
[2018-05-05] MEDS: GABAPENTIN 300 MG CAP PO SCH (10:15)
[2018-05-05] MEDS: FERROUS SULFATE 325 MG TAB PO SCH (10:15)
[2018-05-05] MEDS: CYANOCOBALAMIN 500 MCG TAB PO SCH (10:15)
[2018-05-05] MEDS: PANTOPRAZOLE 40 MG TAB PO SCH (10:15)
[2018-05-05] MEDS: METOLAZONE 5 MG TAB PO SCH (10:16)
[2018-05-05] MEDS: ASPirin 81 mg TAB PO SCH (10:18)
[2018-05-05] MEDS: CARVEDILOL 3.125 MG TAB PO SCH (10:18)
[2018-05-05] MEDS: cloNIDine HCL 0.1 MG TAB PO SCH (10:19)
[2018-05-05] MEDS: ENALAPRIL MALEATE 2.5 MG TAB PO SCH (10:19)
[2018-05-05 13:20] VITALS: BP 114/49
[2018-05-05] MEDS ORDERED: SENNA 8.6 MG TAB PO ONE (14:45)
[2018-05-05] MEDS ORDERED: POLYETHYLENE GLYCOL 17 GM PWDR PO ONE (14:45)
[2018-05-05] MEDS ORDERED: DOCUSATE SOD 100 MG CAP PO ONE (14:45)
--- NOTE | 2018-05-05 14:50 | NUR ---
AT BEDSIDE DR MOSQUERA AT BEDSIDE AT THIS TIME. NEW ORDERS RECEIVED WILL CARRY OUT ORDERS RECEIVED.
--- NOTE | 2018-05-05 15:00 | NUR ---
OXYGENATION PATIENT UP TO WALK HALLS WITHOUT OXYGEN TO MONITOR PULSE OX. PATIENT MAINTAINED BETWEEN 88-92% DURING THIS TIME. WILL CONTINUE TO MONITOR.
[2018-05-05 16:38] VITALS: BP 152/84
[2018-05-05 16:40] VITALS: BP 114/49
--- NOTE | 2018-05-05 17:21 | NUR ---
DISCHARGED PATIENT DISCHARGED HOME VIA WHEELCHAIR TO PRIVATE FAMILY VEHICLE AFTER ALL DISCHARGE INSTRUCTIONS GIVEN AND ALL QUESTIONS AND CONCERNS ADDRESSED. IV WAS REMOVED USING CLEAN STERILE TECHNIQUE. CATHETER WAS INTACT UPON REMOVAL. PRESSURE DRESSING APPLIED. TELE REMOVED, CLEANED AND RETURNED TO [facility]. PATIENT SHOWED NO S/S OF DISTRESS OR SOB NOTED UPON DISCHARGE.
== END 2018-05-05 17:20 | disposition home or self-care (01) | DRG 194 ==
LOC: ER 10:58 → TELE 20:36 → TELE-EAST 05-01 11:21
PROVIDERS: ADMIT Internal Medicine; ATTEND Internal Medicine
DX: I13.0 Hypertensive heart and chronic kidney disease with heart failure and stage 1 through stage 4 chronic kidney disease, or unspecified chronic kidney disease (principal); N17.0 Acute kidney failure with tubular necrosis; E11.21 Type 2 diabetes mellitus with diabetic nephropathy; N18.4 Chronic kidney disease, stage 4 (severe); D61.818 Other pancytopenia; E11.22 Type 2 diabetes mellitus with diabetic chronic kidney disease; E11.65 Type 2 diabetes mellitus with hyperglycemia; I50.33 Acute on chronic diastolic (congestive) heart failure; I25.10 Atherosclerotic heart disease of native coronary artery without angina pectoris; J20.9 Acute bronchitis, unspecified; E83.51 Hypocalcemia; E78.5 Hyperlipidemia, unspecified; D63.8 Anemia in other chronic diseases classified elsewhere; F41.9 Anxiety disorder, unspecified; N04.9 Nephrotic syndrome with unspecified morphologic changes; Z79.4 Long term (current) use of insulin; Z80.0 Family history of malignant neoplasm of digestive organs; Z80.8 Family history of malignant neoplasm of other organs or systems; Z82.49 Family history of ischemic heart disease and other diseases of the circulatory system; Z83.3 Family history of diabetes mellitus; Z90.710 Acquired absence of both cervix and uterus
CPT/HCPCS: 36415; 71045; 78452; 80048; 80053; 81001; 82570; 82607; 82962; 83036; 83735; 83880; 84156; 84443; 84484; 85025; 85610; 85730; 87804; 93005; 93017; 93306; 94640; 94761; 96365; 96375; 97116; 97530; G0378; J0153; J1815; J3490

== ENCOUNTER 2018-05-13 08:31 | Emergency (ER) | payer MEDICAID ==
[~2018-05-13 08:31] MED LIST changes: -FURO40TA4 PO; -LISI30TA36 PO; -METF-370 PO
[2018-05-13 09:11] LABS: Basophils # (auto) 0.1 uL; Basophils % (auto) 0.8 % (0.0-2.0); Lymphocytes # (auto) 1.8 uL; Mean Corpuscular Hgb Conc. 32.4 g/dL (32.0-36.0); Monocytes # (auto) 0.5 uL; Red Blood Cells 3.62 10^6/uL (4.0-5.20)
[2018-05-13 09:12] LABS: Eosinophils # (auto) 0.8 uL; Eosinophils % (auto) 7.2 % (0.0-7.0); Hematocrit 28.6 % (36.0-46.0); Hemoglobin 9.3 g/dL (12.2-16.2); Lymphocytes % (auto) 16.6 % (10.0-50.0); Mean Corpuscular Hemoglobin 25.6 pg (28.0-32.0); Mean Corpuscular Volume 79.1 fL (80.0-100.0); Monocytes % (auto) 4.9 % (0.0-12.0); Neutrophils # (auto) 7.8 uL; Neutrophils % (auto) 70.5 % (37.0-80.0); Platelet Count (auto) 282 10^3/uL (140-450); White Blood Cell 11.1 10^3/uL (4.4-10.8)
[2018-05-13] MEDS ORDERED: ONDANSETRON HCL 4 MG/2 ML VIAL IV ONE (09:15)
[2018-05-13] MEDS ORDERED: SODIUM CHLORIDE 0.9% 1,000 ML IV ONE ×2 (09:33)
[2018-05-13 09:34] LABS: Albumin 1.5 g/dL (3.4-5.0); Anion Gap 7 (5-15); Blood Urea Nitrogen 45 mg/dL (7-18); Calcium 8.4 mg/dL (8.5-10.1); Carbon Dioxide 25 mmol/L (21-32); Chloride 105 mmol/L (98-107); Glucose 379 mg/dL (74-106); Magnesium 2.3 mg/dL (1.6-2.6); Potassium 4.4 mmol/L (3.5-5.1); Sodium 137 mmol/L (136-145)
[2018-05-13 09:39] LABS: Alanine Aminotransferase 17 U/L (13-56); Alkaline Phosphatase 153 U/L (45-117); Aspartate Aminotransferase 16 U/L (15-37); BUN/Creatinine Ratio 23.6; Bilirubin, Total 0.3 mg/dL (0.2-1.0); GFR African American 35 mL/min; GFR Non-African American 29 mL/min; Total Protein 7.3 g/dL (6.4-8.2)
[2018-05-13] MEDS ORDERED: hydrALAZINE HCL 20 MG/ML VL IV ONE (09:45)
[2018-05-13 10:51] LABS: Urine Bacteria NONE SEEN /hpf (None Seen); Urine Blood TRACE /uL (Negative); Urine Specific Gravity 1.011 (1.001-1.035); Urine WBC 4 /hpf (0 - 5)
[2018-05-13 11:47] VITALS: BP 172/88
== END 2018-05-13 12:19 | disposition home or self-care (01) ==
LOC: EDBD 08:31 → ER 08:33
DX: K52.9 Noninfective gastroenteritis and colitis, unspecified (principal); I10 Essential (primary) hypertension; E11.9 Type 2 diabetes mellitus without complications; E78.5 Hyperlipidemia, unspecified; Z90.710 Acquired absence of both cervix and uterus; Z79.82 Long term (current) use of aspirin; Z79.4 Long term (current) use of insulin; Z79.899 Other long term (current) drug therapy; Z86.73 Personal history of transient ischemic attack (TIA), and cerebral infarction without residual deficits
CPT/HCPCS: 36415; 70450; 71045; 80053; 81001; 83735; 84484; 85025; 93005; 94761; 96361; 96374; 96375; 99284; J0360; J2405; J7030

== ENCOUNTER 2018-07-04 18:58 | Inpatient (IN) | payer MEDICAID ==
[~2018-07-04] VITALS: Ht 121.9 cm; Wt 75.5 kg
[~2018-07-04 18:58] MED LIST changes: +AML5T PO; +CAR3125T PO; -CARV3.1240 PO
[2018-07-04] MEDS ORDERED: cloNIDine HCL 0.1 MG TAB PO ONE ×2 (19:15)
[2018-07-04] MEDS ORDERED: ONDANSETRON HCL 4 MG/2 ML VIAL IV ONE (19:15)
[2018-07-04] MEDS ORDERED: MORPHINE SULF INJ 2 MG/ML SYRINGE 1ML IV ONE (19:15)
[2018-07-04] MEDS ORDERED: ASPirin 81 mg TAB PO ONE (19:15)
[2018-07-05] MEDS ORDERED: cloNIDine HCL 0.1 MG TAB PO ONE (01:30)
[2018-07-05 01:40] LABS: Chloride 110 mmol/L (98-107); Potassium 4.1 mmol/L (3.5-5.1); Sodium 140 mmol/L (136-145)
[2018-07-05 01:42] LABS: Albumin 1.8 g/dL (3.4-5.0); Anion Gap 7 (5-15); Blood Urea Nitrogen 39 mg/dL (7-18); Carbon Dioxide 23 mmol/L (21-32); Glucose 303 mg/dL (74-106); Magnesium 2.1 mg/dL (1.6-2.6)
[2018-07-05 01:48] LABS: Alanine Aminotransferase 17 U/L (13-56); Alkaline Phosphatase 161 U/L (45-117); Aspartate Aminotransferase 16 U/L (15-37); Bilirubin, Total 0.2 mg/dL (0.2-1.0); GFR African American 30 mL/min; GFR Non-African American 25 mL/min; Total Protein 6.1 g/dL (6.4-8.2)
[2018-07-05 01:56] LABS: Basophils # (auto) 0.1 uL; Eosinophils # (auto) 0.4 uL; Lymphocytes # (auto) 1.8 uL; Mean Corpuscular Hemoglobin 25.9 pg (28.0-32.0)
[2018-07-05 01:58] LABS: Basophils % (auto) 0.8 % (0.0-2.0); Eosinophils % (auto) 6.9 % (0.0-7.0); Hematocrit 31.3 % (36.0-46.0); Hemoglobin 10.3 g/dL (12.2-16.2); Lymphocytes % (auto) 27.9 % (10.0-50.0); Mean Corpuscular Hgb Conc. 32.8 g/dL (32.0-36.0); Mean Corpuscular Volume 78.9 fL (80.0-100.0); Monocytes # (auto) 0.4 uL; Monocytes % (auto) 6.6 % (0.0-12.0); Neutrophils # (auto) 3.7 uL; Neutrophils % (auto) 57.8 % (37.0-80.0); Platelet Count (auto) 173 10^3/uL (140-450); Red Blood Cells 3.97 10^6/uL (4.0-5.20); Red Cell Distribution Width 16.9 % (11.8-14.3); White Blood Cell 6.4 10^3/uL (4.4-10.8)
[2018-07-05] MEDS ORDERED: InsuLIN REG 1unit/0.01ml Soln (100units/ml) SC ONE (02:15)
[2018-07-05] MEDS ORDERED: InsuLIN REG 1unit/0.01ml Soln (100units/ml) SC SCH (02:30)
[2018-07-05] MEDS: ENALAPRILAT 1.25 MG/ML-1ML VIAL IV SCH ×2 (02:44→04:03)
[2018-07-05] MEDS ORDERED: TEMAZEPAM 15 MG CAP PO PRN (04:15)
[2018-07-05] MEDS ORDERED: DEXTROSE (50%) 50ML SYRG IV PRN (04:15)
[2018-07-05] MEDS ORDERED: ONDANSETRON HCL 4 MG/2 ML VIAL IV PRN (04:15)
[2018-07-05] MEDS ORDERED: hydrALAZINE HCL 20 MG/ML VL IV ONE (04:30)
[2018-07-05] MEDS ORDERED: amLODIPine BESYLATE 5 MG TAB PO SCH (04:30)
[2018-07-05 05:25] VITALS: BP 138/77
--- NOTE | 2018-07-05 05:25 | NUR ---
OPENING NOTE RECEIVED PATIENT FROM ER. NO REPORT GIVEN. ASSUMING ROLE OF CARE OF PATIENT AT THIS TIME. PATIENT SHOWING NO SIGN OF DISTRESS, SHORTNESS OF BREATH, AND PATIENT STATES A HEADACHE AT 7/10. PATIENT EDUCATED ON PLAN OF CARE FOR THE NIGHT AND PATIENT VERBALIZED UNDERSTANDING. BED LOWERED, CALL LIGHT WITHIN REACH, AND PATIENT WILL BE ROUNDED ON EVERY HOUR AND NEEDED.
[2018-07-05 06:14] VITALS: BP 138/77
[2018-07-05] MEDS: ACCU-CHEK COMFORT CURVE STRIP VI SCH ×4 (06:33→23:32)
[2018-07-05] MEDS: ACETAMINOPHEN 500 MG TAB PO PRN ×2 (06:34→23:24)
[2018-07-05] MEDS: InsuLIN REG 1unit/0.01ml Soln (100units/ml) SC SCH ×4 (06:34→23:32)
--- NOTE | 2018-07-05 08:00 | NUR ---
Morning note patient resting in bed with even and unlabored respirations, no distress noted. Instructed patient on POC, fall precautions and to call for assistance as needed. Patient verbalized understanding. Fall precautions in place with bed in low locked position, x2 side rails up and call light within reach. Will continue to monitor q1hr & PRN.
[2018-07-05] MEDS: ASPirin-EC 81 mg tab PO SCH (08:36)
[2018-07-05] MEDS: cloNIDine HCL 0.1 MG TAB PO SCH ×2 (08:37→22:38)
[2018-07-05] MEDS: CARVEDILOL 3.125 MG TAB PO SCH ×2 (08:37→17:18)
[2018-07-05] MEDS: amLODIPine BESYLATE 5 MG TAB PO SCH (08:38)
[2018-07-05 09:08] VITALS: BP 150/83
[2018-07-05] MEDS ORDERED: NITROGLYCERIN 0.4 MG SL TAB SL ONE (10:00)
[2018-07-05 13:06] VITALS: BP 142/75
--- NOTE | 2018-07-05 15:24 | NUR ---
Patient resting in bed with even and unlabored respirations, no distress noted. Call light within reach. Will continue to monitor q1hr & PRN.
[2018-07-05] MEDS ORDERED: SODIUM CHLORIDE 0.9% 500 ML IV ONE (16:45)
[2018-07-05 17:02] VITALS: BP 151/79
[2018-07-05] MEDS: hydrALAZINE HCL 10 MG TAB PO PRN (17:16)
--- NOTE | 2018-07-05 18:27 | NUR ---
RE: medication; called MD Called Dr. Aubree Ayon to notify MD that patient reports taking Lasix at home. Voicemail left.
[2018-07-05] MEDS ORDERED: FURO40TA PO (18:36)
--- NOTE | 2018-07-05 18:37 | NUR ---
End of shift patient resting in bed with even and unlabored respirations, no distress noted. No changes throughout the shift. Fall precautions in place with bed in low locked position, x2 side rails up, and call light within reach.
--- NOTE | 2018-07-05 19:25 | NUR ---
Care endorsed to TONIA Guzman.
--- NOTE | 2018-07-05 19:25 | NUR ---
Opening Shift Note Assumed care of patient, awake and alert. No S/S of SOB or pain. Pt talking of personal / familial distress she is experiencing. Divorce proceedings in progress, and she states she may be losing her house in 2 mos if she cannot get particular past payments met on Saturday. Pt then speaking of effect on her daughter and began to cry. This RN asked if pt would like for this RN to pray. Pt stated 'yes'. Pt joined in on prayer and then thanked this RN when finished. RN instructed pt on POC and to call for assist PRN. This RN will continue to monitor for changes Q1hr and PRN. Call light to R of pt. Bed low. HOB in semi-Rivera's position.
--- NOTE | 2018-07-05 19:30 | NUR ---
Opening Shift Note Assumed care of patient, awake and alert. No S/S of distress or pain. Instructed on POC and to call for assist PRN, will continue to monitor for changes PRN. Bed low; HOB in high Rivera's. SOB with conversation. RT tx in progress. Call light in reach. Addendum: 07/06/18 at 0106 by MARCIA REAGAN RN Above note entered on wrong patient; please disregard.
[2018-07-05 21:52] VITALS: BP 165/121
[2018-07-05] MEDS: ATORVASTATIN 20 MG TAB PO SCH (22:38)
--- NOTE | 2018-07-05 23:52 | NUR ---
Paging instructor [employer] for Dr. Aubree Ayon; message left to call this RN re. pt request for 'something for anxiety.' Pt c/o H/A and sl pain in L upper arm and increased stress 2/2 divorce in progress and impending poss loss of home. Tylenol given for H/A as ordered.
[2018-07-06] MEDS: hydrALAZINE HCL 10 MG TAB PO PRN ×4 (00:06→20:56)
--- NOTE | 2018-07-06 00:06 | NUR ---
Pt sleeping. Awakened pt to give prn dose of apresoline 10mg. Again asking for 'stress medicine.' Explained that admissions manager rn MD had been paged.
--- NOTE | 2018-07-06 01:20 | NUR ---
Pt had stated that when she took Tylenol earlier in the hosp. stay, she went to sleep. Pt sleeping now, suddenly. No s/sx of resp. distress.
--- NOTE | 2018-07-06 05:06 | NUR ---
TJ Blake, reporting elevated bps; R arm 182/87 and L arm 160/68. Lou took both arms twice.
[2018-07-06 05:18] VITALS: BP 160/68
[2018-07-06 06:13] LABS: Basophils # (auto) 0.1 uL; Basophils % (auto) 0.8 % (0.0-2.0); Eosinophils # (auto) 0.4 uL; Hematocrit 28.9 % (36.0-46.0); Red Cell Distribution Width 16.7 % (11.8-14.3)
[2018-07-06 06:18] LABS: Eosinophils % (auto) 6.3 % (0.0-7.0); Hemoglobin 9.6 g/dL (12.2-16.2); Lymphocytes # (auto) 1.5 uL; Lymphocytes % (auto) 20.7 % (10.0-50.0); Mean Corpuscular Hemoglobin 26.2 pg (28.0-32.0); Mean Corpuscular Hgb Conc. 33.2 g/dL (32.0-36.0); Mean Corpuscular Volume 78.8 fL (80.0-100.0); Monocytes # (auto) 0.3 uL; Monocytes % (auto) 4.9 % (0.0-12.0); Neutrophils # (auto) 4.7 uL; Neutrophils % (auto) 67.3 % (37.0-80.0); Platelet Count (auto) 163 10^3/uL (140-450); Potassium 4.3 mmol/L (3.5-5.1); Red Blood Cells 3.66 10^6/uL (4.0-5.20)
[2018-07-06 06:22] LABS: Calcium 7.9 mg/dL (8.5-10.1)
[2018-07-06 06:25] LABS: BUN/Creatinine Ratio 21.2
[2018-07-06] MEDS: ACCU-CHEK COMFORT CURVE STRIP VI SCH ×4 (06:55→22:17)
[2018-07-06] MEDS: InsuLIN REG 1unit/0.01ml Soln (100units/ml) SC SCH ×4 (06:59→22:17)
[2018-07-06 08:24] VITALS: BP 158/73
[2018-07-06] MEDS: cloNIDine HCL 0.1 MG TAB PO SCH ×2 (08:55→22:16)
[2018-07-06] MEDS: CARVEDILOL 3.125 MG TAB PO SCH ×2 (08:55→16:45)
[2018-07-06] MEDS: ASPirin-EC 81 mg tab PO SCH (08:55)
[2018-07-06] MEDS: amLODIPine BESYLATE 5 MG TAB PO SCH (08:56)
--- NOTE | 2018-07-06 10:04 | NUR ---
Patient reports anxiety Patient stated "I feel like I can't catch my breath. My house. My . Just everything." Therapeutic conversation was given. Patient seen crying. Patient denied sensation of SOB at the end of the conversation. Patient denied needing further assistance. Call light within reach. Will continue to monitor q1hr & PRN. SHANELL Chadwick, at bedside during conversation.
--- NOTE | 2018-07-06 11:41 | NUR ---
MD was at bedside - Dr. Schmid Notified MD RE: patient's elevated BP. Orders received and read back to verify.
[2018-07-06 12:30] VITALS: BP 168/73
[2018-07-06 14:10] VITALS: BP 160/69
--- NOTE | 2018-07-06 14:21 | NUR ---
Patient resting in bed respirations even and unlabored, no distress noted. Call light within reach. Will continue to monitor q1hr & PRN.
--- NOTE | 2018-07-06 15:34 | NUR ---
was at bedside - Dr. Ayon POC discussed with this RN. to place orders.
[2018-07-06] MEDS ORDERED: guaiFENesin-DM 100/10mg/5ml SYR PO PRN (16:15)
[2018-07-06] MEDS ORDERED: POLYETHYLENE GLYCOL 17 GM PWDR PO ONE (16:15)
[2018-07-06] MEDS ORDERED: amLODIPine BESYLATE 5 MG TAB PO ONE (16:30)
--- NOTE | 2018-07-06 16:41 | NUR ---
Updated MD RE: BP- Dr. Schmid Updated Dr. Schmid of patient's most recent BP and medication changes per Dr. Ayon. MD verbalized understanding. Orders received and read back to verify.
[2018-07-06 16:46] VITALS: BP 194/71
--- NOTE | 2018-07-06 18:05 | NUR ---
RE: Elevated BP- orders received Notified Dr. Schmid of reassessment BP (BP 201/78mmHg, HR SR 65 bpm) after ordered medications administered. MD verbalized understanding. Orders received and read back to verify.
--- NOTE | 2018-07-06 18:12 | NUR ---
RE: order Called ultrasound department to clarify if a renal arterial doppler to rule out Renal artery stenosis can be performed per Dr. Schmid's order. No answer. Called radiology department. Spoke with Yash who took a message. Message left for [employer].
--- NOTE | 2018-07-06 18:21 | NUR ---
RE: order Clarification received by [employer].
[2018-07-06] MEDS: cloNIDine HCL 0.1 MG TAB PO PRN (18:23)
--- NOTE | 2018-07-06 18:26 | NUR ---
Patient resting in bed with even and unlabored respirations, no distress noted. Patient talking on personal cell phone at this time. Call light within reach.
--- NOTE | 2018-07-06 18:46 | NUR ---
End of shift patient resting in bed with even and unlabored respirations, no distress noted. Patient talking on personal cell phone at this time. Fall precautions in place with bed in low locked position, x2 side rails up, and call light within reach.
--- NOTE | 2018-07-06 19:00 | NUR ---
ASSUMED PATIENT CARE- NOC SHIFT PATIENT IS ALERT AND ORIENTED X4, ANSWERS IN COMPLETE SENTENCES AND MAKES APPROPRIATE EYE CONTACT. PATIENT IS IN BED, BED IS LOCKED AT LOWEST POSITION. BED RAILS UP X2 AND HEAD OF BED IS UP >30 DEGREES FOR SAFETY PRECAUTIONS. BEDSIDE TABLE WITHIN REACH, CALL LIGHT WITHIN REACH. DISCUSSED POC WITH PATIENT AND INSTRUCTED PATIENT TO CALL PRN; PATIENT VERBALIZED UNDERSTANDING. NO S/SX OF DISTRESS, SOB OR PAIN. WILL CONTINUE TO MONITOR Q1H AND PRN.
--- NOTE | 2018-07-06 19:13 | NUR ---
Care endorsed to TONIA Barry.
[2018-07-06] MEDS: DOCUSATE SOD 100 MG CAP PO SCH (22:00)
[2018-07-06 22:13] VITALS: BP 192/70
[2018-07-06] MEDS: ATORVASTATIN 20 MG TAB PO SCH (22:16)
[2018-07-07] MEDS: cloNIDine HCL 0.1 MG TAB PO PRN (00:31)
[2018-07-07 05:17] VITALS: BP 150/69
[2018-07-07] MEDS: InsuLIN REG 1unit/0.01ml Soln (100units/ml) SC SCH ×3 (06:36→18:17)
[2018-07-07] MEDS: ACCU-CHEK COMFORT CURVE STRIP VI SCH ×3 (06:37→18:02)
[2018-07-07] MEDS: CARVEDILOL 3.125 MG TAB PO SCH ×2 (08:00→18:05)
[2018-07-07 08:24] VITALS: BP 155/82
[2018-07-07] MEDS: DOCUSATE SOD 100 MG CAP PO SCH (10:00)
[2018-07-07] MEDS: cloNIDine HCL 0.1 MG TAB PO SCH (10:00)
[2018-07-07] MEDS: ASPirin-EC 81 mg tab PO SCH (10:00)
[2018-07-07] MEDS ORDERED: amLODIPine BESYLATE 5 MG TAB PO SCH ×2 (10:00)
[2018-07-07 13:06] VITALS: BP 154/60
--- NOTE | 2018-07-07 13:07 | NUR ---
MORNING GLUCOSE CHECK ATTEMPTED TO CHECK PATIENTS BLOOD GLUCOSE AT BEDSIDE, PATIENT WAS RESTING AND STATED TO LEAVE HER ALONE UNTIL SHE CAN EAT, WILL CONTINUE TO MONITOR
--- NOTE | 2018-07-07 13:43 | NUR ---
CALL PLACED TO STRESS LAB INQUIRING APPROX TIME PATIENT WILL BE HAVING STRESS TEST TODAY, AYLIN IN LAB STATES PT WILL NOT HAVE ANOTHER STRESS TEST DUE TO HAVING ONE IN THE LAST 6 MONTHS, CONFIRMED THAT A STRESS TEST WAS COMPLETED ON 05/02/2018, PLACED PAGE TO DR. KNAPP FOR NOTIFICATION OF RESULTS AND POSSIBLE CARDIAC CLEARANCE, PER DR KRISHNAN PT IS PENDING D/C, WILL AWAIT FURTHER ORDERS
[2018-07-07] MEDS ORDERED: AML5T PO (13:59)
[2018-07-07] MEDS ORDERED: CLO01T PO (13:59)
[2018-07-07] MEDS ORDERED: CAR3125T PO (13:59)
[2018-07-07] MEDS ORDERED: HYDR-4296 PO (13:59)
--- NOTE | 2018-07-07 14:27 | NUR ---
assessment Patient is a 57 year old female who is alert and oriented. Patients cognitive abilities are intact. Prior to admission patient lived home with family and functioned with assistance. Per patient she will return home to her prior living arrangements post discharge and family will transport her home. Patient informed me she has no need for DME. Patient informed me she needs assistance with cleaning. Patient informed me Her PCP is Dr Stuart. I informed patient she has a right to speak to a social science research assistant regarding all care. I informed patient she has a right to participate in any and all discharge planning. Patient is aware of visiting hours on the hospital floor. I informed patient she has a right to privacy. Patient does not have a POA and advanced directive. I have offered patient information on POA and advanced directives. I informed the patient the advantages and benefits of having an Advanced Directive. Patient verbalized understanding and agreed to discharge plan. Per ss consult patient requesting info on advanced directive and home health. Patient has been provided with advanced directive. Per consult home health evaluation. order has been sent to [facility] case manager to satisfy home health order. Addendum: 07/07/18 at 1431 by Masha CRUM Amended: Links added.
--- NOTE | 2018-07-07 14:35 | NUR ---
[facility] HAS ACCEPTED PATIENT. START OF CARE WILL BE 24 TO 48 HOURS AFTER DISCHARGE. [phone].
--- NOTE | 2018-07-07 14:45 | NUR ---
CALL PLACED TO MD DR. KNAPP CALLED TO INFORM HIM THAT PT HAS ALREADY HAD A STRESS TEST AND TO PROVIDE FURTHER ORDERS REGARDING D/C
--- NOTE | 2018-07-07 15:20 | NUR ---
RETURN CALL FROM SPOKE WITH GIL OWENS TO D/C WITH FOLLOWUP O/P, DR KRISHNAN INFORMED, NEW ORDERS PLACED
[2018-07-07 16:31] VITALS: BP 189/77
[2018-07-07 17:49] VITALS: BP 151/72
--- NOTE | 2018-07-07 20:00 | NUR ---
PATIENT DISCHARGED Discharge instructions given as ordered. Encourage to follow up with PMD as instructed. All questions and concerns addressed. Patient verbalized understanding. Medication reconciliation form completed and copy given to patient. Telemetry unit returned to [facility]. Patient taken to vehicle via wheelchair with all personal belongings, accompanied by staff, FAMILY MEMBER WITH PATIENT. No distress noted at time of departure. IV DC'd with sterile technique, catheter fully intact. Pressure dressing applied to site. Patient tolerated procedure well. Discharged with aftercare instructions per MD.
== END 2018-07-07 20:00 | disposition home health service (06) | DRG 198 ==
LOC: ER 18:59 → TELE 07-05 04:30 → TELE-WESTW 07-05 05:25
PROVIDERS: ADMIT Nurse Practitioner Family; ATTEND Internal Medicine
DX: R07.89 Other chest pain (principal); I25.10 Atherosclerotic heart disease of native coronary artery without angina pectoris; E43 Unspecified severe protein-calorie malnutrition; E11.22 Type 2 diabetes mellitus with diabetic chronic kidney disease; N18.4 Chronic kidney disease, stage 4 (severe); I12.9 Hypertensive chronic kidney disease with stage 1 through stage 4 chronic kidney disease, or unspecified chronic kidney disease; E11.65 Type 2 diabetes mellitus with hyperglycemia; F41.9 Anxiety disorder, unspecified; E78.5 Hyperlipidemia, unspecified; D50.9 Iron deficiency anemia, unspecified; Z79.82 Long term (current) use of aspirin; Z80.0 Family history of malignant neoplasm of digestive organs; Z80.8 Family history of malignant neoplasm of other organs or systems; Z82.49 Family history of ischemic heart disease and other diseases of the circulatory system; Z86.73 Personal history of transient ischemic attack (TIA), and cerebral infarction without residual deficits; Z83.3 Family history of diabetes mellitus; Z90.710 Acquired absence of both cervix and uterus; Z68.43 Body mass index [BMI] 50.0-59.9, adult
CPT/HCPCS: 36415; 70450; 71046; 76775; 80048; 80053; 82962; 83735; 83880; 84484; 85025; 87081; 94761; 96372; 96374; 96375; G0378; J1815

== ENCOUNTER 2018-10-20 00:44 | Emergency (ER) | payer MEDICAID ==
[~2018-10-20] VITALS: Ht 152.4 cm; Wt 81.6 kg
[~2018-10-20 00:44] MED LIST changes: +CLO01T PO; -CLON0.1T PO; +HYDR-4296 PO
[2018-10-20 01:00] VITALS: BP 161/67
[2018-10-20] MEDS ORDERED: LORazepam 2MG/ML-1ML VIAL IV ONE (01:15)
[2018-10-20] MEDS ORDERED: SODIUM CHLORIDE 0.9% 500 ML IVB ONE (01:18)
[2018-10-20 01:34] LABS: Eosinophils # (auto) 0.2 uL; Neutrophils # (auto) 4.3 uL
[2018-10-20 01:37] LABS: Basophils # (auto) 0.1 uL; Basophils % (auto) 0.9 % (0.0-2.0); Eosinophils % (auto) 3.5 % (0.0-7.0); Hematocrit 29.4 % (36.0-46.0); Lymphocytes % (auto) 16.1 % (10.0-50.0); Mean Corpuscular Volume 79.3 fL (80.0-100.0); Monocytes # (auto) 0.6 uL; Neutrophils % (auto) 70.5 % (37.0-80.0); Platelet Count (auto) 172 10^3/uL (140-450); Red Blood Cells 3.71 10^6/uL (4.0-5.20); Red Cell Distribution Width 15.6 % (11.8-14.3); White Blood Cell 6.1 10^3/uL (4.4-10.8)
[2018-10-20 01:51] LABS: INR 0.94 (0.9-1.15); Partial Thromboplastin Time 27.9 sec (23.64-32.05)
[2018-10-20 02:04] LABS: Albumin 2.2 g/dL (3.4-5.0); Potassium 4.4 mmol/L (3.5-5.1)
[2018-10-20 02:11] LABS: BUN/Creatinine Ratio 13.2; Bilirubin, Total 0.4 mg/dL (0.2-1.0)
[2018-10-20 02:28] LABS: Magnesium 2.1 mg/dL (1.6-2.6)
== END 2018-10-20 04:14 | disposition home or self-care (01) ==
LOC: EDBD 00:44 → ER 00:46
DX: K52.9 Noninfective gastroenteritis and colitis, unspecified (principal); R06.4 Hyperventilation; I10 Essential (primary) hypertension; E11.9 Type 2 diabetes mellitus without complications; E78.00 Pure hypercholesterolemia, unspecified; Z86.73 Personal history of transient ischemic attack (TIA), and cerebral infarction without residual deficits; Z90.710 Acquired absence of both cervix and uterus; Z79.82 Long term (current) use of aspirin; Z79.899 Other long term (current) drug therapy
CPT/HCPCS: 36415; 74176; 80053; 82150; 83690; 83735; 85025; 85610; 85730; 93005; 94761; 96361; 96374; 99284; J2060; J7040

== ENCOUNTER 2018-10-27 10:32 | Emergency (ER) | payer MEDICAID ==
[~2018-10-27] VITALS: Ht 162.6 cm; Wt 72.6 kg
[2018-10-27 12:00] LABS: Basophils # (auto) 0.1 uL; Basophils % (auto) 0.8 % (0.0-2.0); Eosinophils # (auto) 0.4 uL; Eosinophils % (auto) 5.1 % (0.0-7.0); Hematocrit 28.3 % (36.0-46.0); Hemoglobin 9.2 g/dL (12.2-16.2); Lymphocytes # (auto) 1.3 uL; Lymphocytes % (auto) 16.5 % (10.0-50.0); Mean Corpuscular Hemoglobin 26.2 pg (28.0-32.0); Mean Corpuscular Hgb Conc. 32.5 g/dL (32.0-36.0); Mean Corpuscular Volume 80.7 fL (80.0-100.0); Monocytes # (auto) 0.5 uL; Monocytes % (auto) 6.5 % (0.0-12.0); Neutrophils # (auto) 5.7 uL; Neutrophils % (auto) 71.1 % (37.0-80.0); Platelet Count (auto) 164 10^3/uL (140-450); Red Blood Cells 3.51 10^6/uL (4.0-5.20); Red Cell Distribution Width 15.9 % (11.8-14.3); White Blood Cell 8.1 10^3/uL (4.4-10.8)
[2018-10-27 12:27] LABS: Albumin 1.9 g/dL (3.4-5.0); Calcium 7.7 mg/dL (8.5-10.1); Potassium 4.7 mmol/L (3.5-5.1)
[2018-10-27 12:31] LABS: BUN/Creatinine Ratio 15.9; Bilirubin, Total 0.2 mg/dL (0.2-1.0)
[2018-10-27 15:28] VITALS: BP 157/52
== END 2018-10-27 15:29 | disposition home or self-care (01) ==
LOC: EDBD 10:32 → ER 10:33
DX: I16.0 Hypertensive urgency (principal); D64.9 Anemia, unspecified; J40 Bronchitis, not specified as acute or chronic; R07.9 Chest pain, unspecified; I10 Essential (primary) hypertension; E11.9 Type 2 diabetes mellitus without complications; E78.5 Hyperlipidemia, unspecified; Z79.82 Long term (current) use of aspirin; Z79.899 Other long term (current) drug therapy; Z86.73 Personal history of transient ischemic attack (TIA), and cerebral infarction without residual deficits; Z90.710 Acquired absence of both cervix and uterus; Z98.51 Tubal ligation status
CPT/HCPCS: 36415; 70450; 71046; 80053; 84484; 85025

== ENCOUNTER 2019-01-14 16:53 | Inpatient (IN) | payer MEDICAID ==
[~2019-01-14] VITALS: Ht 142.2 cm; Wt 72.8 kg
[2019-01-14] MEDS ORDERED: cloNIDine HCL 0.1 MG TAB PO ONE (17:30)
[2019-01-14 17:37] LABS: Basophils # (auto) 0 uL; Basophils % (auto) 0.5 % (0.0-2.0); Eosinophils # (auto) 0.4 uL; Eosinophils % (auto) 4.5 % (0.0-7.0); Hematocrit 30.1 % (36.0-46.0); Hemoglobin 10.1 g/dL (12.2-16.2); Lymphocytes # (auto) 1.6 uL; Lymphocytes % (auto) 19.2 % (10.0-50.0); Mean Corpuscular Hemoglobin 27.2 pg (28.0-32.0); Mean Corpuscular Hgb Conc. 33.3 g/dL (32.0-36.0); Mean Corpuscular Volume 81.7 fL (80.0-100.0); Monocytes # (auto) 0.3 uL; Monocytes % (auto) 4.1 % (0.0-12.0); Neutrophils # (auto) 5.9 uL; Neutrophils % (auto) 71.7 % (37.0-80.0); Platelet Count (auto) 194 10^3/uL (140-450); Red Blood Cells 3.69 10^6/uL (4.0-5.20); Red Cell Distribution Width 15.1 % (11.8-14.3); White Blood Cell 8.3 10^3/uL (4.4-10.8)
[2019-01-14 17:55] LABS: Albumin 2.2 g/dL (3.4-5.0); Anion Gap 9 (5-15); Blood Urea Nitrogen 56 mg/dL (7-18); Calcium 7.7 mg/dL (8.5-10.1); Carbon Dioxide 20 mmol/L (21-32); Chloride 113 mmol/L (98-107); Glucose 194 mg/dL (74-106); Potassium 3.9 mmol/L (3.5-5.1); Sodium 142 mmol/L (136-145)
[2019-01-14 17:58] LABS: Alanine Aminotransferase 17 U/L (13-56); Alkaline Phosphatase 156 U/L (45-117); Aspartate Aminotransferase 18 U/L (15-37); BUN/Creatinine Ratio 17.6; Bilirubin, Total 0.2 mg/dL (0.2-1.0); GFR African American 19 mL/min; GFR Non-African American 16 mL/min; Total Protein 6.5 g/dL (6.4-8.2)
[2019-01-14] MEDS ORDERED: ONDANSETRON HCL 4 MG/2 ML VIAL IV ONE ×2 (18:00)
[2019-01-14] MEDS ORDERED: hydrALAZINE HCL 20 MG/ML VL IV ONE (18:45)
[2019-01-14] MEDS ORDERED: hydrALAZINE HCL 20 MG/ML VL IV PRN (21:30)
[2019-01-14] MEDS ORDERED: TEMAZEPAM 15 MG CAP PO PRN (21:30)
[2019-01-14] MEDS ORDERED: NITROGLYCERIN 0.4 MG SL TAB SL PRN (21:30)
[2019-01-14] MEDS ORDERED: ONDANSETRON HCL 4 MG/2 ML VIAL IV PRN (21:30)
[2019-01-14] MEDS ORDERED: DEXTROSE (50%) 50ML SYRG IV PRN (21:30)
[2019-01-14] MEDS ORDERED: MORPHINE SULF INJ 2 MG/ML SYRINGE 1ML IV PRN (21:30)
[2019-01-14] MEDS ORDERED: FUROSEMIDE 40 MG/4 ML VIAL IV ONE (21:45)
[2019-01-14] MEDS: cloNIDine HCL 0.1 MG TAB PO SCH (22:24)
[2019-01-14] MEDS: ATORVASTATIN 20 MG TAB PO SCH (22:24)
[2019-01-14] MEDS: CARVEDILOL 12.5 MG TAB PO SCH (22:24)
--- NOTE | 2019-01-14 23:10 | NUR ---
Telemetry admit from ER [facility] admitted to Telemetry unit. Patient oriented to Debbie Perez, primary RN, unit, room, bed, and unit policies regarding patient care and visiting hours. Patient now on continuous telemetry monitoring, tele box #9. Patient weighed by bedscale and encouraged to call if they need something. All questions and concerns addressed, patient verbalized understanding.
[2019-01-14] MEDS: ACCU-CHEK COMFORT CURVE STRIP VI SCH (23:41)
[2019-01-14] MEDS: ACETAMINOPHEN 325 MG TAB PO PRN (23:42)
[2019-01-14] MEDS: InsuLIN REG 1unit/0.01ml Soln (100units/ml) SC SCH (23:47)
[2019-01-15] VITALS (7 sets, daily range): BP systolic 142–155; BP diastolic 65–78
[2019-01-15] MEDS ORDERED: MECL-87 PO (00:46)
[2019-01-15] MEDS ORDERED: CARV6.2551 PO (00:46)
[2019-01-15] MEDS ORDERED: HYDR50TA15 PO (00:46)
[2019-01-15] MEDS ORDERED: POTA10TA51 PO (00:46)
[2019-01-15] MEDS ORDERED: CYA100I PO (00:46)
[2019-01-15] MEDS ORDERED: ISOS30TA4 PO (00:46)
[2019-01-15] MEDS ORDERED: CLON0.2D6 PO (00:46)
[2019-01-15] MEDS ORDERED: FURO1TAB31 PO (00:46)
[2019-01-15] MEDS: ACCU-CHEK COMFORT CURVE STRIP VI SCH ×4 (05:47→23:56)
[2019-01-15] MEDS: InsuLIN REG 1unit/0.01ml Soln (100units/ml) SC SCH ×3 (05:53→17:38)
[2019-01-15 06:43] LABS: Eosinophils # (auto) 0.3 uL; Eosinophils % (auto) 5.1 % (0.0-7.0); Lymphocytes # (auto) 1.4 uL; Mean Corpuscular Volume 81.3 fL (80.0-100.0); Monocytes # (auto) 0.3 uL; Monocytes % (auto) 5.9 % (0.0-12.0); Neutrophils # (auto) 3.7 uL; Platelet Count (auto) 147 10^3/uL (140-450); White Blood Cell 5.8 10^3/uL (4.4-10.8)
[2019-01-15 06:49] LABS: Basophils # (auto) 0.1 uL; Basophils % (auto) 0.9 % (0.0-2.0); Hematocrit 23.9 % (36.0-46.0); Lymphocytes % (auto) 24.3 % (10.0-50.0); Mean Corpuscular Hemoglobin 27.4 pg (28.0-32.0); Mean Corpuscular Hgb Conc. 33.7 g/dL (32.0-36.0); Neutrophils % (auto) 63.8 % (37.0-80.0); Red Blood Cells 2.94 10^6/uL (4.0-5.20); Red Cell Distribution Width 15.3 % (11.8-14.3)
[2019-01-15 07:06] LABS: Anion Gap 6 (5-15); BUN/Creatinine Ratio 17.3; Blood Urea Nitrogen 59 mg/dL (7-18); Calcium 7.5 mg/dL (8.5-10.1); Carbon Dioxide 23 mmol/L (21-32); Chloride 113 mmol/L (98-107); GFR African American 18 mL/min; GFR Non-African American 15 mL/min; Glucose 175 mg/dL (74-106); Potassium 3.8 mmol/L (3.5-5.1); Sodium 142 mmol/L (136-145)
--- NOTE | 2019-01-15 07:30 | NUR ---
Opening Shift Note RECEIVED REPORT FROM NOC RN. Assumed care of patient, awake and alert. No S/S of distress/SOB or pain. BED IN LOWEST, LOCKED POSITION WITH SIDERAILS UP x2 AND CALL LIGHT WITHIN REACH. Instructed on POC and to call for assist PRN, will continue to monitor for changes Q1hr and PRN.
[2019-01-15] MEDS: FERROUS SULFATE 325 MG TAB PO SCH ×2 (07:43→17:37)
--- NOTE | 2019-01-15 10:25 | NUR ---
DR. Aubree KRISHNAN AT BEDSIDE.
[2019-01-15] MEDS ORDERED: SODIUM CHLORIDE 0.9% 500 ML IV ONE (10:30)
[2019-01-15] MEDS: amLODIPine BESYLATE 5 MG TAB PO SCH (10:31)
[2019-01-15] MEDS: PANTOPRAZOLE 40 MG TAB PO SCH (10:31)
[2019-01-15] MEDS: ASPirin 81 mg TAB PO SCH (10:31)
[2019-01-15] MEDS: cloNIDine HCL 0.1 MG TAB PO SCH ×2 (10:32→22:12)
[2019-01-15] MEDS ORDERED: guaiFENesin-DM 100/10mg/5ml SYR PO PRN (10:45)
[2019-01-15] MEDS ORDERED: ALBUTEROL SULF 2.5 MG/0.5ML(0.5%) NEB SOLN NEB PRN (10:45)
[2019-01-15] MEDS: CARVEDILOL 12.5 MG TAB PO SCH ×2 (12:01→22:13)
--- NOTE | 2019-01-15 13:49 | NUR ---
Dr. Wall in to see patient for cardiology. He states patient is cleared for discharge from cardiology standpoint.
[2019-01-15] MEDS ORDERED: SODIUM CHLORIDE 0.9 % NEB SOLN 3ML NEB ONE (16:01)
[2019-01-15 16:47] LABS: Urine Bacteria NONE SEEN /hpf (None Seen); Urine Blood Negative /uL (Negative); Urine Hyaline Cast MANY /lpf (0 - 2); Urine Mucus FEW (None Seen); Urine Specific Gravity 1.009 (1.001-1.035); Urine WBC 9 /hpf (0 - 5)
[2019-01-15 17:09] LABS: Protein, Urine 435.7 mg/dL (0.0-11.9)
[2019-01-15] MEDS ORDERED: IPRATROPIUM BROM 0.5 MG/2.5ML INH SOL ONE (18:01)
[2019-01-15] MEDS ORDERED: BUDESONIDE (INHALATION) 0.5 MG/2 ML NEB ONE (18:01)
[2019-01-15] MEDS ORDERED: ALBUTEROL SULF 2.5 MG/0.5ML(0.5%) NEB SOLN ONE (18:01)
[2019-01-15 18:04] LABS: Calcium 7.8 mg/dL (8.5-10.1)
[2019-01-15 18:06] LABS: BUN/Creatinine Ratio 17.2
[2019-01-15] MEDS: IPRATROPIUM BROM 0.5 MG/2.5ML INH SOL NEB SCH (18:11)
[2019-01-15] MEDS: ACETYLCYSTEINE 20%(200MG/ML) SOL 4ML NEB SCH (18:12)
[2019-01-15] MEDS: BUDESONIDE (INHALATION) 0.5 MG/2 ML NEB NEB SCH (18:13)
[2019-01-15] MEDS: ACETAMINOPHEN 325 MG TAB PO PRN (21:17)
[2019-01-15] MEDS: ATORVASTATIN 20 MG TAB PO SCH (22:11)
[2019-01-16] MEDS: InsuLIN REG 1unit/0.01ml Soln (100units/ml) SC SCH ×3 (00:01→14:27)
[2019-01-16] MEDS: ACETYLCYSTEINE 20%(200MG/ML) SOL 4ML NEB SCH ×4 (00:12→18:00)
[2019-01-16] MEDS: IPRATROPIUM BROM 0.5 MG/2.5ML INH SOL NEB SCH ×4 (00:13→18:39)
[2019-01-16] MEDS: ALBUTEROL SULF 2.5 MG/0.5ML(0.5%) NEB SOLN NEB PRN ×4 (00:13→18:39)
[2019-01-16 05:00] VITALS: BP 140/65
[2019-01-16] MEDS: ACCU-CHEK COMFORT CURVE STRIP VI SCH ×2 (05:53→14:27)
[2019-01-16 07:47] LABS: Basophils # (auto) 0.1 uL; Basophils % (auto) 0.8 % (0.0-2.0); Eosinophils # (auto) 0.4 uL; Eosinophils % (auto) 5.8 % (0.0-7.0); Hematocrit 25.7 % (36.0-46.0); Hemoglobin 8.7 g/dL (12.2-16.2); Lymphocytes # (auto) 1.2 uL; Lymphocytes % (auto) 18.7 % (10.0-50.0); Mean Corpuscular Hemoglobin 27.6 pg (28.0-32.0); Mean Corpuscular Hgb Conc. 33.9 g/dL (32.0-36.0); Mean Corpuscular Volume 81.4 fL (80.0-100.0); Monocytes # (auto) 0.3 uL; Monocytes % (auto) 4.5 % (0.0-12.0); Neutrophils # (auto) 4.5 uL; Neutrophils % (auto) 70.2 % (37.0-80.0); Platelet Count (auto) 160 10^3/uL (140-450); Red Blood Cells 3.16 10^6/uL (4.0-5.20); Red Cell Distribution Width 15.2 % (11.8-14.3); White Blood Cell 6.3 10^3/uL (4.4-10.8)
[2019-01-16 08:00] LABS: Calcium 7.5 mg/dL (8.5-10.1); Potassium 4.3 mmol/L (3.5-5.1)
[2019-01-16 08:02] LABS: BUN/Creatinine Ratio 16.9; Phosphorus 4.2 mg/dL (2.5-4.90); Uric Acid 6.3 mg/dL (2.6-6.0)
[2019-01-16 08:20] VITALS: BP 160/81
[2019-01-16] MEDS: FERROUS SULFATE 325 MG TAB PO SCH (08:34)
[2019-01-16 09:00] VITALS: BP 160/81
[2019-01-16] MEDS: ASPirin 81 mg TAB PO SCH (09:38)
[2019-01-16] MEDS: CARVEDILOL 12.5 MG TAB PO SCH (09:38)
[2019-01-16] MEDS: PANTOPRAZOLE 40 MG TAB PO SCH (09:38)
[2019-01-16] MEDS: amLODIPine BESYLATE 5 MG TAB PO SCH (09:39)
[2019-01-16] MEDS: cloNIDine HCL 0.1 MG TAB PO SCH (09:39)
[2019-01-16] MEDS: ERGOCALCIFEROL 50,000 UNIT(1.25MG) CAP PO SCH ×2 (09:39→14:08)
[2019-01-16] MEDS ORDERED: AZITHROMYCIN 500MG/ 250ML 250 ML IV SCH (10:00)
[2019-01-16] MEDS: BUDESONIDE (INHALATION) 0.5 MG/2 ML NEB NEB SCH ×2 (11:00→18:39)
[2019-01-16 13:00] VITALS: BP 136/66
[2019-01-16] MEDS ORDERED: SODIUM BICARBONATE 650 MG TAB PO SCH (14:00)
[2019-01-16 16:59] VITALS: BP 145/72
[2019-01-16] MEDS ORDERED: ALBU0.084 NEB (17:42)
[2019-01-16] MEDS ORDERED: AZIT500T66 PO (17:42)
[2019-01-16] MEDS ORDERED: ERGO1CAP23 PO (17:42)
[2019-01-16] MEDS ORDERED: SODI650T PO (17:42)
[2019-01-16] MEDS ORDERED: ALBUAER3 IN (17:42)
[2019-01-16] MEDS ORDERED: HYDR-4296 PO (17:42)
--- NOTE | 2019-01-16 18:22 | NUR ---
Discharge planning per consult, patient has orders for home health evaluation and a nebulizer . Referral sent to [facility] for the nebulizer, and [facility]ika Ren[facility] for the home health. Will follow up on Saturday01.19.19 for the auth and acceptance. If patient is medically cleared patient is okay to discharge. Addendum: 01/19/19 at 1055 by GEORGE SAWANT Patient was accepted with [facility] auth obtained from [facility] [id number], and for the Nebulizer [id number]. Auth provided to both vendors. Rika Renner will see the patient today 01.19 or tomorrow 01.20.19. [facility] rep Garcia advised they will call the patient and plan to deliver the nebulizer some time today.
[2019-01-16 18:27] VITALS: BP 145/72
--- NOTE | 2019-01-16 19:51 | NUR ---
Discharge instructions given as ordered. Encourage to follow up with PMD as instructed. All questions and concerns addressed. Patient verbalized understanding. Medication reconciliation form completed and copy given to patient. Home medications held in Pharmacy returned to patient. IV removed with catheter intact, pressure dressing applied. Telemetry unit returned to ICU. Patient taken to vehicle via wheelchair with all personal belongings, accompanied by staff and family member. No distress noted at time of departure.
[2019-01-17 08:06] LABS: Immunoglobulin G, Serum 545 mg/dL (700-1600)
== END 2019-01-16 19:51 | disposition home health service (06) | DRG 469 ==
LOC: ER 16:53 → EDBD 16:53 → TELE 16:54 → TELE-EAST 23:07
PROVIDERS: ADMIT Nurse Practitioner; ATTEND Internal Medicine
DX: N17.0 Acute kidney failure with tubular necrosis (principal); I13.2 Hypertensive heart and chronic kidney disease with heart failure and with stage 5 chronic kidney disease, or end stage renal disease; E11.22 Type 2 diabetes mellitus with diabetic chronic kidney disease; E11.42 Type 2 diabetes mellitus with diabetic polyneuropathy; J20.9 Acute bronchitis, unspecified; I16.0 Hypertensive urgency; N18.6 End stage renal disease; I50.42 Chronic combined systolic (congestive) and diastolic (congestive) heart failure; D63.1 Anemia in chronic kidney disease; E55.9 Vitamin D deficiency, unspecified; E87.2 Acidosis; E66.9 Obesity, unspecified; E78.5 Hyperlipidemia, unspecified; N04.9 Nephrotic syndrome with unspecified morphologic changes; F41.9 Anxiety disorder, unspecified; Z80.0 Family history of malignant neoplasm of digestive organs; Z68.36 Body mass index [BMI] 36.0-36.9, adult; Z80.8 Family history of malignant neoplasm of other organs or systems; Z82.49 Family history of ischemic heart disease and other diseases of the circulatory system; Z98.51 Tubal ligation status; Z83.3 Family history of diabetes mellitus; Z90.710 Acquired absence of both cervix and uterus; Z82.61 Family history of arthritis; Z87.441 Personal history of nephrotic syndrome
CPT/HCPCS: 36415; 71045; 71250; 80048; 80053; 81001; 82306; 82570; 82784; 82962; 83036; 83735; 83880; 83970; 84100; 84156; 84300; 84443; 84484; 84550; 85025; 86334; 87804; 93005; 94060; 94640; 96365; G0378; J1815; J2405

== ENCOUNTER 2019-01-21 20:58 | Inpatient (IN) | payer MEDICAID ==
[~2019-01-21] VITALS: Ht 149.9 cm; Wt 31.8 kg
[~2019-01-21 20:58] MED LIST changes: +ALBU0.084 NEB; +ALBUAER3 IN; +AZIT500T66 PO; +CYA100I PO; +ERGO1CAP23 PO; +HYDR50TA15 PO; +ISOS30TA4 PO; +MECL-87 PO; +POTA10TA51 PO; +SODI650T PO; -[UNRECOGNIZED DRUG - OTHER]
[2019-01-21 22:25] LABS: Basophils # (auto) 0.1 uL; Eosinophils # (auto) 0.4 uL; Lymphocytes # (auto) 1.6 uL; Monocytes # (auto) 0.5 uL
[2019-01-21 22:26] LABS: Eosinophils % (auto) 5.5 % (0.0-7.0); Hematocrit 25.3 % (36.0-46.0); Hemoglobin 8.5 g/dL (12.2-16.2); Lymphocytes % (auto) 20.4 % (10.0-50.0); Mean Corpuscular Hemoglobin 27.4 pg (28.0-32.0); Mean Corpuscular Hgb Conc. 33.7 g/dL (32.0-36.0); Mean Corpuscular Volume 81.3 fL (80.0-100.0); Monocytes % (auto) 6.1 % (0.0-12.0); Neutrophils # (auto) 5.2 uL; Platelet Count (auto) 176 10^3/uL (140-450); Red Blood Cells 3.11 10^6/uL (4.0-5.20); Red Cell Distribution Width 14.5 % (11.8-14.3); White Blood Cell 7.8 10^3/uL (4.4-10.8)
[2019-01-21 22:43] LABS: Anion Gap 9 (5-15); Blood Urea Nitrogen 67 mg/dL (7-18); Carbon Dioxide 21 mmol/L (21-32); Chloride 112 mmol/L (98-107); Glucose 86 mg/dL (74-106); Potassium 4.8 mmol/L (3.5-5.1); Sodium 142 mmol/L (136-145)
[2019-01-21 22:49] LABS: Alanine Aminotransferase 18 U/L (13-56); Alkaline Phosphatase 164 U/L (45-117); Aspartate Aminotransferase 15 U/L (15-37); BUN/Creatinine Ratio 20.3; Bilirubin, Total 0.3 mg/dL (0.2-1.0); GFR African American 19 mL/min; GFR Non-African American 15 mL/min; Total Protein 6.1 g/dL (6.4-8.2)
[2019-01-21 22:54] LABS: Partial Thromboplastin Time 31.3 sec (23.64-32.05)
[2019-01-22] MEDS ORDERED: cloNIDine HCL 0.1 MG TAB PO ONE (00:45)
[2019-01-22] MEDS ORDERED: TEMAZEPAM 15 MG CAP PO PRN (00:45)
[2019-01-22] MEDS ORDERED: DEXTROSE (50%) 50ML SYRG IV PRN (00:45)
[2019-01-22] MEDS ORDERED: hydrALAZINE HCL 25 MG TAB PO ONE (00:45)
[2019-01-22] MEDS ORDERED: NITROGLYCERIN 0.4 MG SL TAB SL PRN (00:45)
[2019-01-22] MEDS ORDERED: ACETAMINOPHEN 325 MG TAB PO PRN (00:45)
[2019-01-22] MEDS ORDERED: ONDANSETRON HCL 4 MG/2 ML VIAL IV PRN (00:45)
[2019-01-22] MEDS ORDERED: MORPHINE SULF INJ 2 MG/ML SYRINGE 1ML IV PRN (00:45)
[2019-01-22] MEDS: InsuLIN REG 1unit/0.01ml Soln (100units/ml) SC SCH ×3 (06:00→17:54)
[2019-01-22] MEDS ORDERED: hydrALAZINE HCL 20 MG/ML VL IV ONE (06:00)
[2019-01-22] MEDS: SODIUM BICARBONATE 650 MG TAB PO SCH ×3 (06:02→21:42)
[2019-01-22] MEDS: ACCU-CHEK COMFORT CURVE STRIP VI SCH ×3 (06:08→17:55)
[2019-01-22 08:09] VITALS: BP 182/77
--- NOTE | 2019-01-22 08:09 | NUR ---
Telemetry admit from ER [facility] admitted to Telemetry unit after SBAR received. Patient oriented to America Chew, primary RN, unit, room, bed, and unit policies regarding patient care and visiting hours. Patient now on continuous telemetry monitoring, tele box # 16 and telemetry reading on arrival to unit is . Patient placed on bedside oxygen, weighed by bedscale and encouraged to call if they need something. All questions and concerns addressed, patient verbalized understanding. Note:
--- NOTE | 2019-01-22 08:15 | NUR ---
PATIENT IS ALERT ORIENTED X4, ARRIVED TO ROOM 239 VIA WHEEL CHAIR, NO DISTRESS NOTED, DENIES ANY CHEST PAIN 0/10, OR SHORTNESS OF BREATH, NO EDEMA ON LOWER EXTREMITIES NOTED, ABLE TO SELF REPOSITION AND VERBALIS HER NEEDS, CALL LIGHT WITHIN REACH.
[2019-01-22] MEDS: cloNIDine HCL 0.1 MG TAB PO SCH ×2 (09:47→21:44)
[2019-01-22] MEDS: ASPirin 81 mg TAB PO SCH (09:48)
[2019-01-22] MEDS: ISOSORBIDE MONONITRATE IR 20 MG TAB PO SCH ×2 (09:49→21:44)
[2019-01-22] MEDS: PANTOPRAZOLE 40 MG TAB PO SCH (09:49)
[2019-01-22] MEDS: CARVEDILOL 12.5 MG TAB PO SCH ×2 (09:49→21:45)
[2019-01-22] MEDS ORDERED: amLODIPine BESYLATE 5 MG TAB PO SCH (10:00)
[2019-01-22 10:06] VITALS: BP 182/77
--- NOTE | 2019-01-22 11:30 | NUR ---
FAMILY PATIENT'S SISTER AT BED SIDE
[2019-01-22 13:00] VITALS: BP 141/80
--- NOTE | 2019-01-22 13:00 | NUR ---
DR BACH / WOOD HEEL FLAP RUBBER IS HE HERE FOLLOWING UP ON PT
[2019-01-22] MEDS: hydrALAZINE HCL 25 MG TAB PO SCH ×2 (14:06→21:45)
[2019-01-22 17:00] VITALS: BP 143/71
--- NOTE | 2019-01-22 18:47 | NUR ---
PT CONTINUE STABLE, NO DISTRESS NOTED, STATED <I FEEL MUCH BETTER>, CONTINUE CARE
--- NOTE | 2019-01-22 19:52 | NUR ---
received pt from day rn poc reviewed
[2019-01-22 22:00] VITALS: BP 163/72
[2019-01-22] MEDS ORDERED: ATORVASTATIN 20 MG TAB PO SCH (22:00)
[2019-01-23] MEDS: ACCU-CHEK COMFORT CURVE STRIP VI SCH ×3 (01:20→11:44)
[2019-01-23] MEDS: InsuLIN REG 1unit/0.01ml Soln (100units/ml) SC SCH ×3 (01:21→11:44)
--- NOTE | 2019-01-23 02:40 | NUR ---
no changes resting with eyes closed no c/o cp
[2019-01-23 05:00] VITALS: BP 147/75
[2019-01-23] MEDS: SODIUM BICARBONATE 650 MG TAB PO SCH ×2 (06:00→14:00)
[2019-01-23] MEDS: hydrALAZINE HCL 25 MG TAB PO SCH ×2 (06:01→14:00)
[2019-01-23 06:30] LABS: Calcium 7.9 mg/dL (8.5-10.1); Potassium 5.1 mmol/L (3.5-5.1)
[2019-01-23 06:40] LABS: BUN/Creatinine Ratio 17.5
--- NOTE | 2019-01-23 06:57 | NUR ---
report given to am nurse poc reviewed
--- NOTE | 2019-01-23 07:42 | NUR ---
PATIENT ROUNDS PATIENT LYING IN BED, NO DISTRESS NOTED, RR EQUAL AND NONLABORED. BED IN LOWEST POSITION ,SIDE RAILS UP X2, CALL LIGHT WITHIN REACH WILL CONTINUE TO MONITOR.
[2019-01-23 09:00] VITALS: BP 146/60
[2019-01-23] MEDS: ISOSORBIDE MONONITRATE IR 20 MG TAB PO SCH (10:00)
[2019-01-23] MEDS ORDERED: amLODIPine BESYLATE 5 MG TAB PO SCH (10:00)
[2019-01-23] MEDS: PANTOPRAZOLE 40 MG TAB PO SCH (10:42)
[2019-01-23] MEDS: cloNIDine HCL 0.1 MG TAB PO SCH (10:42)
[2019-01-23] MEDS: ASPirin 81 mg TAB PO SCH (10:43)
[2019-01-23] MEDS: CARVEDILOL 12.5 MG TAB PO SCH (10:43)
--- NOTE | 2019-01-23 11:30 | NUR ---
MD DR MOSQUERA IN TO SEE PATIENT, PLAN FOR DISCHARGE TODAY.
--- NOTE | 2019-01-23 12:10 | NUR ---
IV removal IV DC'd with clean sterile technique, catheter fully intact. Pressure dressing applied to site. Patient tolerated well. TELE CLEANED AND RETURNED TO SENIOR JAVASCRIPT DEVELOPER. NOTE:
[2019-01-23 13:00] VITALS: BP 150/63
--- NOTE | 2019-01-23 13:57 | NUR ---
TRANSPORTATION PATIENT STILL UNABLE TO GET TRANSPORTATION HOME-[facility] PROVIDED, ETA FOR [id number].
--- NOTE | 2019-01-23 14:47 | NUR ---
Discharge instructions given as ordered. Encourage to follow up with PMD as instructed. All questions and concerns addressed. Patient verbalized understanding. Medication reconciliation form completed and copy given to patient. IV removed with catheter intact, pressure dressing applied. Telemetry unit returned to ICU. Patient taken to [facility] vehicle via wheelchair with all personal belongings, accompanied by staff member. No distress noted at time of departure.
== END 2019-01-23 15:07 | disposition home or self-care (01) | DRG 203 ==
LOC: EDBD 20:58 → ER 20:58 → TELE 20:59 → TELE-EAST 01-22 08:09
PROVIDERS: ADMIT Nurse Practitioner; ATTEND Internal Medicine
DX: R07.89 Other chest pain (principal); I13.2 Hypertensive heart and chronic kidney disease with heart failure and with stage 5 chronic kidney disease, or end stage renal disease; E11.22 Type 2 diabetes mellitus with diabetic chronic kidney disease; N18.5 Chronic kidney disease, stage 5; I16.0 Hypertensive urgency; I50.32 Chronic diastolic (congestive) heart failure; E78.5 Hyperlipidemia, unspecified; F41.9 Anxiety disorder, unspecified; D64.9 Anemia, unspecified; Z79.899 Other long term (current) drug therapy; Z90.710 Acquired absence of both cervix and uterus; Z98.51 Tubal ligation status; Z79.82 Long term (current) use of aspirin; Z80.8 Family history of malignant neoplasm of other organs or systems; Z80.0 Family history of malignant neoplasm of digestive organs; Z82.61 Family history of arthritis; Z84.89 Family history of other specified conditions; Z82.49 Family history of ischemic heart disease and other diseases of the circulatory system; Z79.84 Long term (current) use of oral hypoglycemic drugs
CPT/HCPCS: 36415; 71045; 80048; 80053; 82962; 83735; 83880; 84443; 84484; 85025; 85379; 85610; 85730; 87081; 93005; 93306; 96374; 96375; G0378; J1815; J2405